=== PATIENT | male | born 1955 | race African-American/Black ===

== ENCOUNTER 2021-05-25 15:43 | Inpatient (IN) | payer OTHER, SELFPAY ==
--- NOTE | ~2021-05-25 | US_ITS ---
EXAMINATION: US VENOUS ULTRASOUND WITH DOPPLER LOWER EXTREMITY, BILATERAL CLINICAL INFORMATION: Leg pain COMPARISON: None TECHNIQUE: Ultrasound of the deep veins is performed from the hip to the calf with compression sonography and color and pulse Doppler assessment. Spectral analysis with color-flow imaging is performed. FINDINGS: RIGHT: There is occlusive thrombus throughout the right lower extremity extending from the common femoral vein through the tibioperoneal trunk. The veins appear expanded/larger in size, filled with thrombus. There is no significant popliteal fossa cyst. LEFT: There is normal venous compression and respiratory variation and augmented flow. The visualized common femoral vein, superficial femoral vein, profunda femoral vein, popliteal vein, and the trifurcation region shows no evidence of deep venous thrombosis. There is no significant popliteal fossa cyst. If the patient's symptoms persist, followup ultrasound in 5 days 7 days might be of value to exclude proximal propagation from a non-visualized calf vein. US/US venous duplex LE BI IMPRESSION: Extensive DVT throughout the right lower extremity from the common femoral vein to the tibioperoneal trunk. No DVT demonstrated in the left lower extremity. Urgent findings were discussed with SHERWIN Meke at 8:39pm.
--- NOTE | ~2021-05-25 | US_ITS ---
EXAMINATION: US ABDOMEN LIMITED CLINICAL INFORMATION: Right upper quadrant pain. Evaluate for cholecystitis.. COMPARISON: None TECHNIQUE: Real-time imaging of the right upper quadrant abdominal viscera. FINDINGS: PANCREAS: Obscured by interposed bowel gas. LIVER: Normal. The liver is normal in size. The liver contour is normal. Parenchymal echogenicity is normal. No focal hepatic lesion. There is no intrahepatic biliary duct dilatation seen. GALLBLADDER: Normal. The gallbladder is physiologically distended without evidence of stones, sludge, polyps, wall thickening or pericholecystic fluid. COMMON BILE DUCT: Normal in caliber measuring 0.5 cm in diameter. RIGHT KIDNEY: Normal. No hydronephrosis. No renal calculi. Multiple simple cysts are present, largest measuring 3.4 cm within the lower pole. These are benign and require no further workup or follow-up. The kidney measures 11.7 cm in maximum dimension. FREE FLUID: None. US/US abdomen limited IMPRESSION: No cholelithiasis or evidence of cholecystitis.
--- NOTE | ~2021-05-25 | XR_ITS ---
EXAMINATION: XR CHEST CLINICAL INFORMATION: Shortness of breath COMPARISON: None TECHNIQUE: Frontal view of the chest was obtained. FINDINGS: There is a rounded opacity projecting over the right lower lung. Left lung clear. Normal heart size and pulmonary vascularity. No acute or suspicious osseous abnormalities. XR/XR chest 1V IMPRESSION: Nonspecific rounded opacity projecting over the right lower lung. Recommend departmental radiographs or CT chest for further evaluation.
--- NOTE | ~2021-05-25 | CT_ITS ---
EXAMINATION: CT ANGIOGRAM OF THE CHEST WITH AND WITHOUT CONTRAST (CT PULMONARY ANGIOGRAM FOR PE) CLINICAL INFORMATION: Reason for Exam Nonspecific RLL opacity on CXR. R/o PE COMPARISON: Chest radiograph earlier today TECHNIQUE: Prior to contrast administration, noncontrast localization images were obtained. Subsequently, multidetector volumetric imaging was performed from the thoracic inlet to below the diaphragms following the administration of 70 mL Omnipaque 350 intravenous contrast. No contrast reaction reported Sagittal, coronal, and MIP oblique sagittal reformatted images were obtained on the CT workstation, uploaded to PACS, and reviewed. This CT examination was performed using dose optimization techniques as appropriate, variously including the following: *Automated exposure control *Adjustment of mA and/or kV according to patient size (this includes techniques or standardized protocols for targeted exams where dose is matched to indication/reason for exam; i.e. extremities or head) *Use of iterative reconstruction technique Total exam dose-length product 313 mGy-cm FINDINGS: QUALITY OF STUDY/CONTRAST BOLUS: Satisfactory. PULMONARY ARTERIES: There is a large pulmonary embolus in the distal right main pulmonary artery extending into the right lower lobe right middle lobe and right upper lobe branches. No definite left-sided emboli are seen. THORACIC AORTA: The ascending aorta is dilated at 4 cm. No aortic dissection is seen. 4 vessel branching pattern of the aortic arch is present with separate origin to the left vertebral artery. LUNG: Right lower lobe opacity is present is present with associated small pleural effusion. Differential diagnosis would include pneumonia versus evolving pulmonary infarction. Thickened bronchi extend towards the area of infiltrate. No lung masses are seen. PLEURA: A small right pleural effusion is present. MEDIASTINUM: Normal heart size. No pericardial effusion. No hilar or mediastinal lymphadenopathy. No evidence of septal bowing or right heart strain. CHEST WALL/AXILLA: No axillary or internal mammary lymphadenopathy. OSSEOUS STRUCTURES: No acute or suspicious osseous abnormality. UPPER ABDOMEN: Unremarkable. No reflux of contrast into the hepatic veins to suggest elevated right heart pressures. CT/CT angio chest PE protocol IMPRESSION: Large right-sided pulmonary emboli with associated small right effusion and well-defined area of patchy infiltrate with microcystic areas. A fracture would include pneumonia versus pulmonary infarct. No evidence of right heart strain. VTE: positive This critical result was discussed with Syeda dietz at 7:20 PM on the evening of the exam and it was ascertained that the content and urgency of the report was understood at the time of direct communication.
[2021-05-25 15:51] VITALS: BP 105/67; PULSE 91; RESP 16; TEMP 35.9; O2SAT 98; BMI 30.5
--- NOTE | 2021-05-25 16:57 | ED.GENADULT ---
HPI - General Adult General Chief complaint: Back Pain/Injury Stated complaint: side pain Time Seen by Provider: 05/25/21 16:31 Source: patient Mode of arrival: ambulatory History of Present Illness HPI narrative: 65-year-old male with a past medical history of hypertension presenting to the ED complaining of RUQ abdominal pain radiating to epigastrium x 2-3 weeks. Reports pain inhibits him from taking a deep breath secondary to sharp pain. Recently traveled from [place] 3 weeks ago. Admits 2 daughters with history of DVT/PE, no personal history of DVT/PE. Denies fever, chills, nausea/vomiting, diarrhea, dysuria/hematuria, pain with eating Related Data Home Medications Medication Instructions Recorded Confirmed diltiazem HCl 240 mg 1 cap PO DAILY 05/25/21 05/25/21 capsule,extended release 24 hr losartan 100 1 tab PO DAILY 05/25/21 05/25/21 mg-hydrochlorothiazide 25 mg tablet potassium chloride 10 mEq 1 tab PO DAILY 05/25/21 05/25/21 tablet,extended release Allergies Allergy/AdvReac Type Severity Reaction Status Date / Time No Known Allergies Allergy Verified 05/25/21 15:56 Review of Systems Review of Systems: Constitutional: No Fever, No Chills, No Fatigue, No Malaise ENT/Mouth: No Ear Pain, No Nasal Congestion, No sore throat, No Rhinorrhea Eyes: No Eye Pain, No Discharge Cardiovascular: No Chest Pain, + SOB from pain, No Palpitations Respiratory: No Cough, No Dyspnea Gastrointestinal: No Nausea, No Vomiting, No Diarrhea, No Constipation, + Abdominal pain Genitourinary: No Dysuria, No Hematuria, No Urinary Incontinence, No Flank Pain Musculoskeletal: No joint pain, No Myalgias, No Joint Swelling Skin: No Skin Lesions, No rash Neuro: No Weakness, No Numbness, No Paresthesias Yes all other systems are reviewed and are negative [facility] Past Medical History Attestation statement: The following information was validated with the patient. Medical History (Updated 05/25/21 @ 21:06 by SHERWIN Harris) Hypertension Social History Social History Alcohol intake: never Smoked in Last 30 Days: No Use of substances other than those prescribed or required for medical reasons: No Advance Directives: No Advance Directives Information Provided: No Physical Exam Vital Signs: Vital Signs: Last Vital Signs Temp 96.7 F L 05/25/21 15:51 Pulse 84 05/25/21 18:56 Resp 18 05/25/21 18:56 BP 144/88 H 05/25/21 18:56 Pulse Ox 97 05/25/21 18:56 Body Mass Index 30.5 Const: General: cooperative and healthy appearing Orientation/consciousness: patient oriented x3 Limitations: no limitations HENMT: Head: Yes normal to inspection Ears: hearing grossly normal bilaterally General nose exam: Normal external nose present Face and sinus: Yes normal facial exam Eyes: General: appearance normal, both eyes and all related structures EOM: EOMs intact bilaterally Neck: Neck: Yes normal visual inspection Resp: Effort & Inspection: normal respiratory effort Auscultation: clear to auscultation bilaterally, no rales, no rhonchi and no wheezes Cardio: Rate: regular rate Heart sounds: S1 normal heart sound present and S2 normal heart sound present GI: Inspection: Yes normal to inspection Palpation (GI): Soft to palpation, Tenderness to palpation present (GI) in the RUQ and not rigid : General: Yes no CVA tenderness Back/Spine/Pelvis: Back: no CVA tenderness Skin: Rashes: no rashes Wounds: no wounds Neuro: General: patient oriented x3 Gait exam (Neuro): Normal gait present Extrem: General: Yes normal to inspection Course Course Course Narrative: -leukocytosis of 14.7 > low concern for severe sepsis, platelets elevated US abdomen limited IMPRESSION: No cholelithiasis or evidence of cholecystitis. -182--XR chest 1V IMPRESSION: Nonspecific rounded opacity projecting over the right lower lung. Recommend departmental radiographs or CT chest for further evaluation. >> ALT elevated > will obtain CTA to rule out PE/pneumonia. Empiric IV ceftriaxone ordered. Will obtain lactic/blood cultures, coags and BNP -[id number]--received call from [facility] patient does have PE in the right pulmonary artery as well as an infiltrate in the RLL with pleural effusion, could be pulmonary infarct >> will obtain bilateral venous duplex ultrasounds, Doxycycline added, will initiate Deborah, hospitalist paged -[phone]--patient admitted to hospitalist service -2100--US venous duplex LE BI IMPRESSION: Extensive DVT throughout the right lower extremity from the common femoral vein to the tibioperoneal trunk. No DVT demonstrated in the left lower extremity > consult vascular surgery, Dr. Martínez, recommended heparin drip, and patient is good candidate for thrombolysis, likely Medical Decision Making MDM Narrative Medical decision making narrative: 65-year-old male with a past medical history of hypertension presenting to the ED complaining of RUQ abdominal pain radiating to epigastrium x 2-3 weeks. On exam VSS, NAD/nontoxic, abdomen soft with RUQ TTP, no CVAT. Lungs CTA. Concern for cholecystitis/cholelithiasis vs pancreatitis. Lower concern for PE with significant abdominal pain on exam. Symptoms atypical for ACS. Low concern for appendicitis/diverticulitis Plan: Labs, UA, abdomen ultrasound, reassess Lab Data Result diagrams: 05/25/21 17:06 05/25/21 17:06 Labs: Lab Results 05/25/21 05/25/21 05/25/21 Range/Units 17:06 17:06 17:06 WBC 14.7 H (4.8-10.8) X10*3/uL RBC 4.54 L (4.60-5.80) X10*6/uL Hgb 13.4 L (14.0-18.0) g/dl Hct 40.7 L (42-52) % MCV 89.6 (80-98) fL MCH 29.5 (27.0-33.0) pg MCHC 32.9 (31.0-36.0) g/dl RDW 14.7 (11.0-16.0) % Plt Count 787 H (160-400) X10*3/uL MPV 8.6 L (9.4-12.4) fL Immature Gran % (Auto) 1.5 H (0.0-0.4) % Neut % (Auto) 77.6 H (45-73) % Lymph % (Auto) 11.7 L (20-40) % [place] % (Auto) 8.4 (2-11) % Eos % (Auto) 0.4 (0-4) % Baso % (Auto) 0.4 (0-2) % Lymph # (Auto) 1.7 (1.2-4.9) X10*3/uL [place] # (Auto) 1.2 (0.1-1.2) X10*3/uL Eos # (Auto) 0.1 (0.0-0.4) X10*3/uL Baso # (Auto) 0.1 (0.0-0.2) X10*3/uL Abs Immat Gran (auto) 0.22 H (0.00-0.03) X10*3/uL Absolute Neuts (auto) 11.4 H (2.0-8.3) X10*3/uL Absolute Nucleated RBC 0.000 (0.0-0.012) X10*3/uL Nucleated RBC % (auto) 0.0 (0.0-0.2) /100WBC Sodium 137 (135-145) mmol/L Potassium 4.4 (3.3-5.1) mmol/L Chloride 99 (96-108) mmol/L Carbon Dioxide 28 (22-29) mmol/L Anion Gap 14 (12-20) BUN 17 H (9-16) mg/dL Creatinine 1.06 (0.5-1.4) mg/dL Estim Creat Clear Calc 74.7 Estimated GFR > 60 Random Glucose 91 (60-115) mg/dL Lactic Acid (0.5-2.0) mmol/L Calcium 9.7 (8.4-10.2) mg/dL Magnesium 2.8 H (1.6-2.6) mg/dL Total Bilirubin 0.9 (0.0-1.0) mg/dL Direct Bilirubin 0.4 (0.0-0.5) mg/dL AST 37 (5-37) U/L ALT 94 H (0-40) U/L Alkaline Phosphatase 181 H (39-117) U/L Troponin I High Sens (<3.5-35.0) ng/L B-Natriuretic Peptide (<100) pg/mL Total Protein 8.0 (6.5-8.0) g/dL Albumin 3.7 (3.5-5.0) g/dL Lipase 32 (8-78) U/L 05/25/21 05/25/21 Range/Units 18:50 18:51 WBC (4.8-10.8) X10*3/uL RBC (4.60-5.80) X10*6/uL Hgb (14.0-18.0) g/dl Hct (42-52) % MCV (80-98) fL MCH (27.0-33.0) pg MCHC (31.0-36.0) g/dl RDW (11.0-16.0) % Plt Count (160-400) X10*3/uL MPV (9.4-12.4) fL Immature Gran % (Auto) (0.0-0.4) % Neut % (Auto) (45-73) % Lymph % (Auto) (20-40) % [place] % (Auto) (2-11) % Eos % (Auto) (0-4) % Baso % (Auto) (0-2) % Lymph # (Auto) (1.2-4.9) X10*3/uL [place] # (Auto) (0.1-1.2) X10*3/uL Eos # (Auto) (0.0-0.4) X10*3/uL Baso # (Auto) (0.0-0.2) X10*3/uL Abs Immat Gran (auto) (0.00-0.03) X10*3/uL Absolute Neuts (auto) (2.0-8.3) X10*3/uL Absolute Nucleated RBC (0.0-0.012) X10*3/uL Nucleated RBC % (auto) (0.0-0.2) /100WBC Sodium (135-145) mmol/L Potassium (3.3-5.1) mmol/L Chloride (96-108) mmol/L Carbon Dioxide (22-29) mmol/L Anion Gap (12-20) BUN (9-16) mg/dL Creatinine (0.5-1.4) mg/dL Estim Creat Clear Calc Estimated GFR Random Glucose (60-115) mg/dL Lactic Acid 1.4 (0.5-2.0) mmol/L Calcium (8.4-10.2) mg/dL Magnesium (1.6-2.6) mg/dL Total Bilirubin (0.0-1.0) mg/dL Direct Bilirubin (0.0-0.5) mg/dL AST (5-37) U/L ALT (0-40) U/L Alkaline Phosphatase (39-117) U/L Troponin I High Sens 6.6 (<3.5-35.0) ng/L B-Natriuretic Peptide 15 (<100) pg/mL Total Protein (6.5-8.0) g/dL Albumin (3.5-5.0) g/dL Lipase (8-78) U/L Discharge Plan Discharge Clinical Impression: Pulmonary embolism, Pneumonia, DVT (deep venous thrombosis) Patient Disposition: Admitted As Inpatient
[2021-05-25 17:11] LABS: MANUAL DIFF FLAG NO
[2021-05-25] MEDS: 0.9 % Sodium Chloride 1,000 ML 999 ML IVCONT (17:12)
[2021-05-25] MEDS: Ketorolac Tromethamine 15 MG/ML VIAL IVPUSH (17:12)
[2021-05-25] MEDS: ondansetron HCL 4 MG/2 ML VIAL IVPUSH (17:12)
[2021-05-25 17:13] LABS: Basophils Absolute Auto 0.1 X10*3/uL (0.0-0.2); Basophils Percent Auto 0.4 % (0-2); Eosinophils Absolute Auto 0.1 X10*3/uL (0.0-0.4); Eosinophils Percent Auto 0.4 % (0-4); Hematocrit 40.7 % (42-52); Hemoglobin 13.4 g/dl (14.0-18.0); Imm Gran Abs Auto 0.22 X10*3/uL (0.00-0.03); Imm Gran Pct Auto 1.5 % (0.0-0.4); Lymphocytes Absolute Auto 1.7 X10*3/uL (1.2-4.9); Lymphocytes Percent Auto 11.7 % (20-40); Mean Corpuscular HGB Conc 32.9 g/dl (31.0-36.0); Mean Corpuscular Hemoglobin 29.5 pg (27.0-33.0); Mean Corpuscular Volume 89.6 fL (80-98); Mean Platelet Volume 8.6 fL (9.4-12.4); Monocytes Absolute Auto 1.2 X10*3/uL (0.1-1.2); Monocytes Percent Auto 8.4 % (2-11); Neutrophils Absolute Auto 11.4 X10*3/uL (2.0-8.3); Neutrophils Percent Auto 77.6 % (45-73); Platelet Count 787 X10*3/uL (160-400); Red Blood Count 4.54 X10*6/uL (4.60-5.80); Red Cell Distribution Width 14.7 % (11.0-16.0); White Blood Count 14.7 X10*3/uL (4.8-10.8)
[2021-05-25 17:35] LABS: Lipase 32 U/L (8-78)
[2021-05-25 17:40] LABS: Alanine Aminotransferase 94 U/L (0-40); Albumin Level 3.7 g/dL (3.5-5.0); Alkaline Phosphatase 181 U/L (39-117); Anion Gap 14 (12-20); Aspartate Amino Transferase 37 U/L (5-37); Bilirubin Direct 0.4 mg/dL (0.0-0.5); Bilirubin Total 0.9 mg/dL (0.0-1.0); Blood Urea Nitrogen 17 mg/dL (9-16); Calcium 9.7 mg/dL (8.4-10.2); Carbon Dioxide 28 mmol/L (22-29); Chloride 99 mmol/L (96-108); Creatinine Clr Calc Pharmacy 74.7; Estimated Glomerular Filt Rate > 60; Glucose Random 91 mg/dL (60-115); Magnesium 2.8 mg/dL (1.6-2.6); Potassium 4.4 mmol/L (3.3-5.1); Sodium 137 mmol/L (135-145)
[2021-05-25] MEDS: iohexoL 350 MG/ML 100 ML INFUS..BTL IV (18:35)
[2021-05-25] MEDS: cefTRIAXone sodium 1 GM in 0.9 % Sodium Chloride 50 ML IV (18:53)
[2021-05-25 18:56] VITALS: BP 144/88; PULSE 84; RESP 18; O2SAT 97
[2021-05-25] MEDS: fentaNYL citrate/PF 100 MCG/2 ML VIAL 50 MCG IVPUSH (19:02)
--- NOTE | 2021-05-25 19:15 | PC.NURSE ---
awaiting blue to from lab
[2021-05-25 19:17] LABS: Lactic Acid 1.4 mmol/L (0.5-2.0)
[2021-05-25 19:27] LABS: B Type Natriuretic Peptide 15 pg/mL (<100)
--- NOTE | 2021-05-25 19:45 | P.HPHOSP_ITS ---
History of Present Illness Date of Service: 05/25/21 Chief Complaint: Abdominal pain 65-year-old male with a past medical history of hypertension presented to the hospital with a chief complaint of abdominal pain. Patient reports that his the past 2-3 weeks he has been having abdominal pain located in the epigastrium and right upper quadrant associated with nausea and vomiting initially; worsens with deep inspiration. Also causing shortness of breath. Denies any fever chills cough or sputum production. Denies any urinary symptoms. Patient mentions that he had traveled from [facility] about 2-3 weeks ago next [place] [employer] his daughters had diagnosed with pulmonary embolism. Denies any headaches palpitations lightheadedness or dizziness. Denies any trauma. Patient complains of right lower extremity pain the past 3 weeks. Denies any numbness or tingling. Spoke to the patient's daughter at bedside-who reported that she had pulmonary embolism in the past and attributes to her use of oral contraceptive pills. Review of all other systems is negative except mentioned above ER course: Per ER team patient's EKG was nonischemic; abdominal exam was benign; abdominal ultrasound showed no acute findings; CT chest showed evidence of pulmonary embolism in the right main pulmonary artery distally extending into the right middle lobe; also noticed evidence of pneumonia. Given antibiotics and Lovenox. Admitted for further management. [facility] Medical History (Updated 05/25/21 @ 21:06 by SHERWIN Harris) Hypertension Social History Alcohol intake: never Smoked in Last 30 Days: No Use of substances other than those prescribed or required for medical reasons: No Advance Directives: No Advance Directives Information Provided: No Meds Allergies Allergy/AdvReac Type Severity Reaction Status Date / Time No Known Allergies Allergy Verified 05/25/21 15:56 Active Medications: Current Medications Generic Name Dose Route Start Last Admin Trade Name Freq PRN Reason Stop Dose Admin Acetaminophen 650 mg 05/25/21 19:37 Acetaminophen 325 Mg Tablet PO Q6H PRN Pain, Mild (Pain Scale 1-3) Doxycycline Hyclate 100 mg 05/25/21 20:00 Doxycycline Hyclate 100 Mg Tablet PO Q12H [facility] Enoxaparin Sodium 90 mg 05/25/21 19:45 Enoxaparin Sodium 120 Mg/0.8 Ml Syringe 1 mg/kg (90 mg) SUBCUT Q12H [facility] Doxycycline Hyclate 100 mg/ 250 mls @ 166.67 mls/hr 05/25/21 19:21 Sodium Chloride IV 05/25/21 20:50 ONCE ONE Ceftriaxone Sodium 1 gm/ 50 mls @ 100 mls/hr 05/26/21 18:00 Sodium Chloride IV Q24H [facility] Dextrose/Sodium Chloride 1,000 mls @ 100 mls/hr 05/25/21 19:45 D51/2ns IVCONT .Q10H [facility] Magnesium Hydroxide 30 ml 05/25/21 19:37 Milk Of Magnesia 30 Ml Oral.Susp PO DAILY PRN Constipation Melatonin 6 mg 05/25/21 19:37 Melatonin 3 Mg Tablet PO BEDTIME PRN Insomnia Morphine Sulfate 1 mg 05/25/21 19:37 Morphine Sulfate 4 Mg/Ml Cartridge IVPUSH Q4H PRN Pain, Severe (Pain Scale 7-10) Protocol Pharmacy Consult 1 each 05/25/21 19:35 Consult Rx Perform Med Rec MISCELLANE ONCE PRN Consult order Senna 17.2 mg 05/25/21 19:37 Sennosides 8.6 Mg Tablet PO BEDTIME PRN Constipation Sodium Chloride 3 ml 05/26/21 00:00 0.9 % Sodium Chloride Flush 3 Ml Syringe IVFLUSH QSHIFT [facility] Home Medications Medication Instructions Recorded Confirmed Last Taken Type diltiazem HCl 240 mg 1 cap PO DAILY 05/25/21 05/25/21 05/25/21 History capsule,extended release 24 hr losartan 100 1 tab PO DAILY 05/25/21 05/25/21 05/25/21 History mg-hydrochlorothiazide 25 mg tablet potassium chloride 10 mEq 1 tab PO DAILY 05/25/21 05/25/21 05/25/21 History tablet,extended release Physical Exam Vital Signs and Narrative: Vital Signs: Last Vital Signs Temp 96.7 F L 05/25/21 15:51 Pulse 84 05/25/21 18:56 Resp 18 05/25/21 18:56 BP 144/88 H 05/25/21 18:56 Pulse Ox 97 05/25/21 18:56 Body Mass Index 30.5 Gen: Appears be in no acute distress HEENT: NCAT, Moist mucosa. Pulmonary: Vesicular breath sounds, fair air entry CVS: Normal S1-S2 Abdomen: BS+, Soft, Nontender Extremities: Warm well perfused Neuro: Alert and awake. Results Labs CBC and Chem 7: 05/25/21 17:06 05/25/21 17:06 Labs: Laboratory Results - last 24 hr 05/25/21 05/25/21 05/25/21 17:06 17:06 17:06 MCV 89.6 MCH 29.5 MCHC 32.9 RDW 14.7 Plt Count 787 H MPV 8.6 L Immature Gran % (Auto) 1.5 H Neut % (Auto) 77.6 H Lymph % (Auto) 11.7 L [place] % (Auto) 8.4 Eos % (Auto) 0.4 Baso % (Auto) 0.4 Lymph # (Auto) 1.7 [place] # (Auto) 1.2 Eos # (Auto) 0.1 Baso # (Auto) 0.1 Abs Immat Gran (auto) 0.22 H Absolute Neuts (auto) 11.4 H Absolute Nucleated RBC 0.000 Nucleated RBC % (auto) 0.0 Anion Gap 14 Estim Creat Clear Calc 74.7 Estimated GFR > 60 Random Glucose 91 Lactic Acid Calcium 9.7 Magnesium 2.8 H Total Bilirubin 0.9 Direct Bilirubin 0.4 AST 37 ALT 94 H Alkaline Phosphatase 181 H B-Natriuretic Peptide Total Protein 8.0 Albumin 3.7 Lipase 32 05/25/21 05/25/21 18:50 18:51 MCV MCH MCHC RDW Plt Count MPV Immature Gran % (Auto) Neut % (Auto) Lymph % (Auto) [place] % (Auto) Eos % (Auto) Baso % (Auto) Lymph # (Auto) [place] # (Auto) Eos # (Auto) Baso # (Auto) Abs Immat Gran (auto) Absolute Neuts (auto) Absolute Nucleated RBC Nucleated RBC % (auto) Anion Gap Estim Creat Clear Calc Estimated GFR Random Glucose Lactic Acid 1.4 Calcium Magnesium Total Bilirubin Direct Bilirubin AST ALT Alkaline Phosphatase B-Natriuretic Peptide 15 Total Protein Albumin Lipase Imaging Radiologist's Impressions: Impressions Abdomen Ultrasound 05/25/21 16:48 IMPRESSION: No cholelithiasis or evidence of cholecystitis. Chest X-Ray 05/25/21 16:49 IMPRESSION: Nonspecific rounded opacity projecting over the right lower lung. Recommend departmental radiographs or CT chest for further evaluation. Chest CTA 05/25/21 18:22 IMPRESSION: Large right-sided pulmonary emboli with associated small right effusion and well-defined area of patchy infiltrate with microcystic areas. A fracture would include pneumonia versus pulmonary infarct. No evidence of right heart strain. VTE: positive This critical result was discussed with Syeda dietz at 7:20 PM on the evening of the exam and it was ascertained that the content and urgency of the report was understood at the time of direct communication. Assessment and Plan (1) Pulmonary embolism: Qualifiers: Acute cor pulmonale presence: unspecified Chronicity: acute Pulmonary embolism type: unspecified Qualified Code(s): I26.99 - Other pulmonary embolism without acute cor pulmonale Status: Acute (2) Pneumonia: Qualifiers: Laterality: right Lung location: lower lobe of lung Pneumonia type: due to unspecified organism Qualified Code(s): J18.9 - Pneumonia, unspecified organism Status: Acute 65-year-old male with a past medical history of hypertension presented to the hospital with a chief complaint of abdominal pain. Noted to have pulmonary embolism/pneumonia. Admitted for further management. Pulmonary embolism: No evidence of right heart strain on the CT scan. Blood pr essure is stable. ProBNP negative. Will continue Lovenox at therapeutic dose. Echocardiogram Will consult Hematology-Oncology for further recommendations given other members in the family having pulmonary embolism. Right leg pain: Venous duplex showed extensive DVT throughout the right lower extremity from common femoral vein to the tibioperoneal trunk. ER team discussed with Dr. Tanya avalos from vascular surgery-> recommended admission to the [facility], heparin drip, will be evaluated in the morning for possible intervention if needed. Right lower lobe pneumonia/right-sided pleural effusion: Likely contributing to the patient's pleuritic pain. Continue ceftriaxone and doxycycline. Hypertension: Continue home losartan. Code status: Full code Quality Stroke Does the patient have a stroke diagnosis?: No VTE Prior VTE?: Yes Approximate Date of Prior VTE: 05/25/21 VTE Risk Level:: Medical - moderate - high VTE Device Contraindication: Treatment Not Indicated VTE Drug Contraindication: N/A - Med Ordered
[2021-05-25] MEDS: Doxycycline Hyclate 100 MG in 0.9 % Sodium Chloride 250 ML 166.67 MG IV (19:50)
[2021-05-25] MEDS: Enoxaparin Sodium 100 MG/ML SYRINGE 90 MG SUBCUT (19:51)
--- NOTE | 2021-05-25 19:53 | PHA.MEDREC ---
Pharmacy Consult ? Medication Reconciliation Pharmacy has completed the medication reconciliation. SPOKE WITH PATIENT IN ED.
[2021-05-25 20:11] LABS: COVID-19 Test Negative (Negative)
[2021-05-25 20:16] LABS: Troponin-I High Sensitivity 6.6 ng/L (<3.5-35.0)
[2021-05-25 21:05] LABS: INTERNATIONAL NORM RATIO 1.2 (0.9-1.1); Prothrombin Time 13.5 SEC (9.9-13.0)
[2021-05-25 21:08] LABS: Partial Thromboplastin Time 38.1 SEC (24.1-38.0)
--- NOTE | 2021-05-25 21:10 | PC.NURSE ---
[place] [facility] [place] NISHA MARTINEZ NOT AVAIL[place].
[2021-05-25] MEDS: Dextrose 5 % and 0.45 % NaCl 1,000 ML 100 ML IVCONT (22:03)
[2021-05-25 22:35] VITALS: BP 123/73; PULSE 81; RESP 18; TEMP 37; O2SAT 98
[2021-05-25] MEDS: Melatonin 3 MG TABLET 6 MG PO (23:16)
[2021-05-26] VITALS (8 sets, daily range): BP systolic 109–166; BP diastolic 68–82; PULSE 80–98; RESP 18; TEMP 36.8–38.4; O2SAT 96–98; BMI 28.9
[2021-05-26 03:40] LABS: Hematocrit 35.8 % (42-52); Mean Corpuscular HGB Conc 33.5 g/dl (31.0-36.0); Mean Corpuscular Hemoglobin 29.8 pg (27.0-33.0); Mean Corpuscular Volume 88.8 fL (80-98); Mean Platelet Volume 8.6 fL (9.4-12.4); Platelet Count 675 X10*3/uL (160-400); Red Blood Count 4.03 X10*6/uL (4.60-5.80); Red Cell Distribution Width 14.6 % (11.0-16.0); White Blood Count 12.1 X10*3/uL (4.8-10.8)
[2021-05-26] MEDS: Morphine Sulfate 4 MG/ML CARTRIDGE 1 MG IVPUSH ×2 (03:43→18:02)
[2021-05-26 03:45] LABS: INTERNATIONAL NORM RATIO 1.1 (0.9-1.1)
[2021-05-26 03:48] LABS: PTT Heparin Drip 39.3 SEC (53-77.9)
[2021-05-26 04:13] LABS: Anion Gap 18 (12-20); Blood Urea Nitrogen 16 mg/dL (9-16); Carbon Dioxide 27 mmol/L (22-29); Chloride 97 mmol/L (96-108); Creatinine Clr Calc Pharmacy 74.2; Estimated Glomerular Filt Rate > 60; Glucose Random 114 mg/dL (60-115); Sodium 138 mmol/L (135-145)
[2021-05-26] MEDS: Dextrose 5 % and 0.45 % NaCl 1,000 ML 100 ML IVCONT (06:30)
--- NOTE | 2021-05-26 07:30 | CA_ITS ---
Transthoracic Echocardiogram Patient (Last, First, Middle): Dorian Masterson, Gender: Male Date of : 1955 Age: 65 Procedure Date: 05/26/2021 Procedure Type: Transthoracic Echocardiogram Location: [facility] Height: 170.18 cm Weight: 83.46 kg BSA: 1.95 m2 Heart Rate: bpm BP: 122 / 77 mmHg Loftsman: Referring MD: Sam Trent MD Symptoms: PE Study Quality: Fair ECG Rhythm: Sinus Conclusions: - Normal left ventricular size and systolic function. - Diastolic function is normal for age. - Normal right ventricular cavity size and systolic function. - There is moderate dilatation of the ascending aorta. Findings Left Ventricle Normal left ventricular size and systolic function. There is mildly increased left ventricular wall thickness. The visually estimated ejection fraction is between 60-65%. There is no evidence of regional wall motion abnormalities. Diastolic function is normal for age. Right Ventricle Normal right ventricular cavity size and systolic function. Atria Both atria are normal in size. Aortic Valve There is a normal trileaflet aortic valve. There is no aortic valve stenosis. There is trace (trivial) aortic valve regurgitation. Mitral Valve The mitral valve appears normal. There is trace mitral valve regurgitation. There is no mitral valve stenosis. Pulmonic Valve The pulmonic valve is likely normal. Tricuspid Valve Normal tricuspid valve structure and function. There is mild tricuspid valve regurgitation. Tricuspid regurgitation envelope is inadequate for calculation of right ventricular systolic pressure. Normal right atrial pressure. Great Vessels The pulmonary artery was not well visualized. There is moderate dilatation of the ascending aorta. Venous The inferior vena cava is normal in size and collapses greater than 50% with inspiration. Pericardium/Pleural There is no evidence of pericardial effusion. Prior Study Comparison No prior study available for comparison. Measurements 2D Linear Measurements IVSd: 1.23 0.6-0.9/0.6-1.0 cm LVIDd: 4.91 3.9-5.3/4.2-5.9 cm LVIDd Index: 2.52 2.4-3.2/2.2-3.1 cm/m2 LVIDs: 2.74 2.0-3.6 cm LVPWd: 1.21 0.7-1.1 cm Ao Root: 3.70 2.1-3.5 cm LA Diam: 3.30 2.7-3.8/3.0-4.0 cm LAIDs Index: 1.69 1.5-2.3 cm/m2 LV Mass: 289.84 67-162/88-224 g LV Mass Index: 148.64 43-95/49-115 g/m2 LVOT Diam: 2.20 3.0+(-)1.3 cm Mitral Valve MV Pk E: 0.78 MV PK A: 1.10 MV Decel Time: 140.00 E/A: 0.70 E'Lateral: 12.80 E'Medial: 6.85 E/E' Med: 11.40 E/E' Lat: 6.10 PHT: 41.00 MVA PHT: 5.37 Decel Archuleta: 5.59 Aortic Valve AoV Pk Jose Armando: 1.79 AoV Mn Jose Armando: 1.16 AoV VTI: 0.29 AoV Pk Grad: 13.00 Aov Mn Grad: 6.00 LUIS Cont.VTI: 3.18 LVOT LVOT Pk Jose Armando: 1.17 LVOT Mn Jose Armando: 0.73 LVOT VTI: 0.25 LVOT Pk Grad: 5.00 LVOT Mn Grad: 3.00 LVOT Diam: 2.20 LVOT Area: 3.80 Diastolic Function MV Pk E: 0.78 MV Pk A: 1.10 E/A: 0.70 E'Medial: 6.85 E/E' Med: 11.40 E' Laterial: 12.80 E/E' Lat: 6.10 Tricuspid Valve TR Pk Jose Armando: 2.13 TR Pk Grad: 18.00 Great Vessels Aorta Ao Root-2D: 3.70 2.0-3.7 cm Ao Asc: 4.40 2.1-3.4 cm Pulmonary Valve PV Pk Jose Armando: 0.90 Peak PV Grad: 3.00 Updated in Other Vendor System with Status of Final Faheem Toney MD electronically signed on 05/26/2021 11:33:10 AM with status of Final
[2021-05-26] MEDS: Doxycycline Hyclate 100 MG in 0.9 % Sodium Chloride 250 ML 166.67 MG IV ×2 (08:49→20:16)
[2021-05-26] MEDS: 0.9 % Sodium Chloride Flush 3 ML SYRINGE IVFLUSH ×2 (08:51→18:04)
[2021-05-26 09:06] LABS: Procalcitonin 0.11 ng/mL
--- NOTE | 2021-05-26 09:46 | MHC.CM.PN ---
CM met with Patient at bedside. Patient lives in a house with a Friend and he uses a cane to assist with mobility. Patient's goal is to return home/no services and CM has initiated and will follow for dc planning. PCP is Dr. Shabbir Crane.
[2021-05-26 09:49] LABS: C Reactive Protein 24.68 mg/dL (< or = 0.50)
[2021-05-26] MEDS: Heparin Sodium,Porcine/1/2NS 25,000 UNIT/250 ML IV.SOLN 12.38 UNIT IVCONT (10:32)
--- NOTE | 2021-05-26 12:00 | PM.CNGS ---
History of Present Illness Consult details Consult date: 05/26/21 Reason for consult: other (DVT/PE) Narrative: Very pleasant 65-year-old gentleman presented to the hospital yesterday with acute onset right lower extremity pain and swelling. He noticed it all began after return trip from [place]. He had driven the entire length without any significant breaks her stops. He developed significant right lower extremity swelling and discomfort. He was subsequently seen in the emergency room and worked up. He was noted to have an extensive right lower extremity DVT with pulmonary embolism. He now presents for vascular evaluation. Of note he has no history of prior DVT or trauma. He does have 2 daughters which have had prior DVTs as well. Review of Systems Constitutional: Constitutional: Reports as per HPI ENT: Reports system reviewed and no additional complaints, except as documented Cardiovascular: Cardiovascular: Denies chest pain, Denies chest pain at rest and Denies chest pain with activity Respiratory: Respiratory: Denies chest congestion and Denies cough Gastrointestinal: Gastrointestinal: Reports no additional gastrointestinal complaints Musculoskeletal: Musculoskeletal: Denies abnormal gait Integumentary/Breasts: Skin/Breast: Reports pruritus and Denies wounds Neurologic: Reports system reviewed and no additional complaints, except as documented and Denies abnormal gait Psychiatric: Psychiatric: Denies no additional psychiatric complaints [facility] Past Medical History Medical History (Updated 05/25/21 @ 21:06 by SHERWIN Harris) Hypertension Social History Social History Household Members: Other Household Members Other:: rents a room to someone Housing: House Do you presently have visiting nurse or other home services: No Alcohol intake: never Patient Tobacco Use Status: Never used Tobacco Smoked in Last 30 Days: No Use of substances other than those prescribed or required for medical reasons: Yes 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 If so, by whom?: No Do you feel safe in your current relationship?: No Current Relationship Is there a partner from a previous relationship who is making you feel unsafe now?: No Are you made to feel afraid or neglected: No Advance Directives: No Advance Directives Information Provided: No Do you have thoughts of harming others: None Do you have a plan to hurt others: No Plan Recently lost weight without trying: No How much weight loss: Not applicable Eating poorly because of decreased appetite: No Nutrition screen score: 0 Nutrition Risks: No Nutritional Risk Poor oral hygiene: No service: Yes Current occupational status: unemployed Meds Allergies Allergy/AdvReac Type Severity Reaction Status Date / Time No Known Allergies Allergy Verified 05/25/21 15:56 Active Medications: Current Medications Generic Name Dose Route Start Last Admin Trade Name Freq PRN Reason Stop Dose Admin Acetaminophen 650 mg 05/25/21 19:37 Acetaminophen 325 Mg Tablet PO Q6H PRN Pain, Mild (Pain Scale 1-3) Heparin Sodium (Porcine) 3,500 unit 05/26/21 03:10 Heparin Sodium,Porcine 5,000 Unit/Ml Vial 40 unit/kg (3500 unit) IVPUSH PROTOCOL BOLUS PRN 40 unit/kg - Heparin Protocol Protocol Heparin Sodium (Porcine) 7,100 unit 05/26/21 03:10 Heparin Sodium,Porcine 5,000 Unit/Ml Vial 80 unit/kg (7100 unit) IVPUSH PROTOCOL BOLUS PRN 80 unit/kg - Heparin Protocol Protocol Ceftriaxone Sodium 1 gm/ 50 mls @ 100 mls/hr 05/26/21 18:00 Sodium Chloride IV Q24H MIKA Dextrose/Sodium Chloride 1,000 mls @ 100 mls/hr 05/25/21 19:45 05/26/21 08:47 D51/2ns IVCONT 0 mls/hr .Q10H MIKA Infusion Doxycycline Hyclate 100 mg/ 250 mls @ 166.67 mls/hr 05/26/21 08:00 05/26/21 10:39 Sodium Chloride IV Infused Q12H MIKA Infusion Heparin Sodium/Sodium Chloride 25,000 unit in 250 mls @ 0 mls/hr 05/26/21 03:15 05/26/21 10:32 IVCONT 14 units/kg/hr .Q0M MIKA 12.38 mls/hr Administration Protocol Per Protocol Magnesium Hydroxide 30 ml 05/25/21 19:37 Milk Of Magnesia 30 Ml Oral.Susp PO DAILY PRN Constipation Melatonin 6 mg 05/25/21 19:37 05/25/21 23:16 Melatonin 3 Mg Tablet PO 6 mg BEDTIME PRN Administration Insomnia Morphine Sulfate 1 mg 05/25/21 19:37 05/26/21 03:43 Morphine Sulfate 4 Mg/Ml Cartridge IVPUSH 1 mg Q4H PRN Administration Pain, Severe (Pain Scale 7-10) Protocol Pharmacy Consult 1 each 05/25/21 19:35 Consult Rx Perform Med Rec MISCELLANE ONCE PRN Consult order Senna 17.2 mg 05/25/21 19:37 Sennosides 8.6 Mg Tablet PO BEDTIME PRN Constipation Sodium Chloride 3 ml 05/26/21 00:00 05/26/21 08:51 0.9 % Sodium Chloride Flush 3 Ml Syringe IVFLUSH 3 ml QSHIFT [facility] Administration Home Medications Medication Instructions Recorded Confirmed Last Taken Type diltiazem HCl 240 mg 1 cap PO DAILY 05/25/21 05/25/21 05/25/21 History capsule,extended release 24 hr losartan 100 1 tab PO DAILY 05/25/21 05/25/21 05/25/21 History mg-hydrochlorothiazide 25 mg tablet potassium chloride 10 mEq 1 tab PO DAILY 05/25/21 05/25/21 05/25/21 History tablet,extended release Physical Exam Vital Signs: Vital Signs: Last Vital Signs Temp 99 F 05/26/21 10:24 Pulse 88 05/26/21 10:24 Resp 18 05/26/21 10:24 BP 131/77 05/26/21 10:24 Pulse Ox 96 05/26/21 10:24 Body Mass Index 28.9 Const: General: cooperative, healthy appearing and comfortable Orientation/consciousness: oriented to person, oriented to place and oriented to time Neck: Carotids: no bruits Chest: Chest palpation & inspection: normal inspection of the chest and normal palpation of entire chest wall Resp: Effort & Inspection: normal respiratory effort and able to speak in complete sentences Cardio: Rate: regular rate Heart sounds: S1 normal heart sound present and S2 normal heart sound present Peripheral pulses: Peripheral pulses 2+ throughout GI: Inspection: Yes normal to inspection Skin: Other: +2 edema right lower extremity General skin exam: dry skin Neuro: General: oriented to person, oriented to place and oriented to time Extrem: General: Yes edema Right lower extremity: full ROM, normal capillary refill and edema Left lower extremity: full ROM, normal capillary refill and edema Psych: Mental Status: mental status grossly normal Results Labs Result diagrams: 05/26/21 03:31 05/26/21 03:31 Labs: Abnormal lab results 05/25/21 05/25/21 05/25/21 Range/Units 17:06 17:06 20:48 WBC 14.7 H (4.8-10.8) X10*3/uL RBC 4.54 L (4.60-5.80) X10*6/uL Hgb 13.4 L (14.0-18.0) g/dl Hct 40.7 L (42-52) % Plt Count 787 H (160-400) X10*3/uL MPV 8.6 L (9.4-12.4) fL Immature Gran % (Auto) 1.5 H (0.0-0.4) % Neut % (Auto) 77.6 H (45-73) % Lymph % (Auto) 11.7 L (20-40) % Abs Immat Gran (auto) 0.22 H (0.00-0.03) X10*3/uL Absolute Neuts (auto) 11.4 H (2.0-8.3) X10*3/uL PT 13.5 H (9.9-13.0) SEC INR 1.2 H (0.9-1.1) APTT 38.1 H (24.1-38.0) SEC PTT (Heparin Protocol) (53-77.9) SEC BUN 17 H (9-16) mg/dL Magnesium 2.8 H (1.6-2.6) mg/dL ALT 94 H (0-40) U/L Alkaline Phosphatase 181 H (39-117) U/L C-Reactive Protein (< or = 0.50) mg/dL 05/26/21 05/26/21 05/26/21 Range/Units 03:31 03:31 03:31 WBC 12.1 H (4.8-10.8) X10*3/uL RBC 4.03 L (4.60-5.80) X10*6/uL Hgb 12.0 L (14.0-18.0) g/dl Hct 35.8 L (42-52) % Plt Count 675 H (160-400) X10*3/uL MPV 8.6 L (9.4-12.4) fL Immature Gran % (Auto) (0.0-0.4) % Neut % (Auto) (45-73) % Lymph % (Auto) (20-40) % Abs Immat Gran (auto) (0.00-0.03) X10*3/uL Absolute Neuts (auto) (2.0-8.3) X10*3/uL PT (9.9-13.0) SEC INR (0.9-1.1) APTT (24.1-38.0) SEC PTT (Heparin Protocol) 39.3 L (53-77.9) SEC BUN (9-16) mg/dL Magnesium (1.6-2.6) mg/dL ALT (0-40) U/L Alkaline Phosphatase (39-117) U/L C-Reactive Protein 24.68 H (< or = 0.50) mg/dL Short CBC 05/25/21 05/26/21 Range/Units 17:06 03:31 WBC 14.7 H 12.1 H (4.8-10.8) X10*3/uL Hgb 13.4 L 12.0 L (14.0-18.0) g/dl Hct 40.7 L 35.8 L (42-52) % Plt Count 787 H 675 H (160-400) X10*3/uL BMP 05/25/21 05/26/21 17:06 03:31 Sodium 137 138 Potassium 4.4 4.0 Chloride 99 97 Carbon Dioxide 28 27 BUN 17 H 16 Creatinine 1.06 1.04 Calcium 9.7 9.0 D Liver Function 05/25/21 Range/Units 17:06 Total Bilirubin 0.9 (0.0-1.0) mg/dL Direct Bilirubin 0.4 (0.0-0.5) mg/dL AST 37 (5-37) U/L ALT 94 H (0-40) U/L Alkaline Phosphatase 181 H (39-117) U/L Albumin 3.7 (3.5-5.0) g/dL All other labs normal. Imaging CT scan - chest: report reviewed and image reviewed Additional studies: Right lower extremity ultrasound was reviewed which was positive for DVT Assessment and Plan (1) DVT (deep venous thrombosis): Qualifiers: Affected thrombotic vein of extremity: unspecified vein of extremity Chronicity: unspecified DVT location: lower extremity Laterality: right Qualified Code(s): I82.401 - Acute embolism and thrombosis of unspecified deep veins of right lower extremity Status: Acute In short patient has an extensive right lower extremity DVT. He is an excellent candidate for thrombolysis due to the location and extent of his DVT. He will be scheduled for right lower extremity venous angiogram with insertion of thrombolysis catheter possible plasty possible stent possible vena cava filter placement. Patient is in agreement and would like to move forward. We will schedule him for early tomorrow morning most likely 07:00. Thank you for allowing us to assist in his care. If there are any questions or concerns please do not hesitate to contact us. Procedures Date of Service Date of Service: 05/26/21
--- NOTE | 2021-05-26 14:36 | P.PNIM_ITS ---
Subjective Subjective Date of Service: 05/26/21 Interval History: RLE swelling + R-sided pleuritic pain No fever Not hypoxic Review of Systems Review of Systems: Yes all other systems are reviewed and are negative Physical Exam Vital Signs: Vital Signs: Last Vital Signs Temp 99 F 05/26/21 10:24 Pulse 88 05/26/21 10:24 Resp 18 05/26/21 10:24 BP 131/77 05/26/21 10:24 Pulse Ox 96 05/26/21 10:24 Body Mass Index 28.9 Gen: in no acute distress HEENT: sclera anicteric, moist mucus membranes Neck: supple Lungs: clear to auscultation bilaterally Heart: regular rate and rhythm, no murmurs Abd: soft, non-tender, non-distended Ext: RLE markedly swollen Skin: warm/well-perfused Neuro: alert and oriented x3, no focal findings Psych: appropriate affect Objective Data Current Medications Generic Name Dose Route Start Last Admin Trade Name Freq PRN Reason Stop Dose Admin Acetaminophen 650 mg 05/25/21 19:37 Acetaminophen 325 Mg Tablet PO Q6H PRN Pain, Mild (Pain Scale 1-3) Heparin Sodium (Porcine) 3,500 unit 05/26/21 03:10 Heparin Sodium,Porcine 5,000 Unit/Ml Vial 40 unit/kg (3500 unit) IVPUSH PROTOCOL BOLUS PRN 40 unit/kg - Heparin Protocol Protocol Heparin Sodium (Porcine) 7,100 unit 05/26/21 03:10 Heparin Sodium,Porcine 5,000 Unit/Ml Vial 80 unit/kg (7100 unit) IVPUSH PROTOCOL BOLUS PRN 80 unit/kg - Heparin Protocol Protocol Ceftriaxone Sodium 1 gm/ 50 mls @ 100 mls/hr 05/26/21 18:00 Sodium Chloride IV Q24H MIKA Dextrose/Sodium Chloride 1,000 mls @ 100 mls/hr 05/25/21 19:45 05/26/21 08:47 D51/2ns IVCONT 0 mls/hr .Q10H MIKA Infusion Doxycycline Hyclate 100 mg/ 250 mls @ 166.67 mls/hr 05/26/21 08:00 05/26/21 10:39 Sodium Chloride IV Infused Q12H MIKA Infusion Heparin Sodium/Sodium Chloride 25,000 unit in 250 mls @ 0 mls/hr 05/26/21 03:15 05/26/21 10:32 IVCONT 14 units/kg/hr .Q0M MIKA 12.38 mls/hr Administration Protocol Per Protocol Alteplase, Recombinant 5 mg/ 500 mls @ 50 mls/hr 05/27/21 07:00 Sodium Chloride INTRAARTER 05/27/21 16:59 .Q10H MIKA 0.5 MG/HR Magnesium Hydroxide 30 ml 05/25/21 19:37 Milk Of Magnesia 30 Ml Oral.Susp PO DAILY PRN Constipation Melatonin 6 mg 05/25/21 19:37 05/25/21 23:16 Melatonin 3 Mg Tablet PO 6 mg BEDTIME PRN Administration Insomnia Morphine Sulfate 1 mg 05/25/21 19:37 05/26/21 03:43 Morphine Sulfate 4 Mg/Ml Cartridge IVPUSH 1 mg Q4H PRN Administration Pain, Severe (Pain Scale 7-10) Protocol Pharmacy Consult 1 each 05/25/21 19:35 Consult Rx Perform Med Rec MISCELLANE ONCE PRN Consult order Senna 17.2 mg 05/25/21 19:37 Sennosides 8.6 Mg Tablet PO BEDTIME PRN Constipation Sodium Chloride 3 ml 05/26/21 00:00 05/26/21 08:51 0.9 % Sodium Chloride Flush 3 Ml Syringe IVFLUSH 3 ml QSHIFT [facility] Administration Labs CBC & Chem 7: 05/26/21 03:31 05/26/21 03:31 Labs: Laboratory Results - last 24 hr 05/25/21 05/25/21 05/25/21 17:06 17:06 17:06 MCV 89.6 MCH 29.5 MCHC 32.9 RDW 14.7 Plt Count 787 H MPV 8.6 L Immature Gran % (Auto) 1.5 H Neut % (Auto) 77.6 H Lymph % (Auto) 11.7 L [place] % (Auto) 8.4 Eos % (Auto) 0.4 Baso % (Auto) 0.4 Lymph # (Auto) 1.7 [place] # (Auto) 1.2 Eos # (Auto) 0.1 Baso # (Auto) 0.1 Abs Immat Gran (auto) 0.22 H Absolute Neuts (auto) 11.4 H Absolute Nucleated RBC 0.000 Nucleated RBC % (auto) 0.0 PT INR APTT PTT (Heparin Protocol) Anion Gap 14 Estim Creat Clear Calc 74.7 Estimated GFR > 60 Random Glucose 91 Lactic Acid Calcium 9.7 Magnesium 2.8 H Total Bilirubin 0.9 Direct Bilirubin 0.4 AST 37 ALT 94 H Alkaline Phosphatase 181 H Troponin I High Sens C-Reactive Protein B-Natriuretic Peptide Total Protein 8.0 Albumin 3.7 Lipase 32 Procalcitonin COVID-19 (RASHAD) COVID-19 Clin Com 05/25/21 05/25/21 05/25/21 18:50 18:51 19:48 MCV MCH MCHC RDW Plt Count MPV Immature Gran % (Auto) Neut % (Auto) Lymph % (Auto) [place] % (Auto) Eos % (Auto) Baso % (Auto) Lymph # (Auto) [place] # (Auto) Eos # (Auto) Baso # (Auto) Abs Immat Gran (auto) Absolute Neuts (auto) Absolute Nucleated RBC Nucleated RBC % (auto) PT INR APTT PTT (Heparin Protocol) Anion Gap Estim Creat Clear Calc Estimated GFR Random Glucose Lactic Acid 1.4 Calcium Magnesium Total Bilirubin Direct Bilirubin AST ALT Alkaline Phosphatase Troponin I High Sens 6.6 C-Reactive Protein B-Natriuretic Peptide 15 Total Protein Albumin Lipase Procalcitonin COVID-19 (RASHAD) Negative COVID-19 [employer] See Note 05/25/21 05/25/21 05/26/21 20:48 20:48 03:31 MCV 88.8 MCH 29.8 MCHC 33.5 RDW 14.6 Plt Count 675 H MPV 8.6 L Immature Gran % (Auto) Neut % (Auto) Lymph % (Auto) [place] % (Auto) Eos % (Auto) Baso % (Auto) Lymph # (Auto) [place] # (Auto) Eos # (Auto) Baso # (Auto) Abs Immat Gran (auto) Absolute Neuts (auto) Absolute Nucleated RBC 0.000 Nucleated RBC % (auto) 0.0 PT Cancelled 13.5 H INR Cancelled 1.2 H APTT 38.1 H PTT (Heparin Protocol) Anion Gap Estim Creat Clear Calc Estimated GFR Random Glucose Lactic Acid Calcium Magnesium Total Bilirubin Direct Bilirubin AST ALT Alkaline Phosphatase Troponin I High Sens C-Reactive Protein B-Natriuretic Peptide Total Protein Albumin Lipase Procalcitonin COVID-19 (RASHAD) COVID-19 Clin Com 09/01/21 09/01/21 09/01/21 03:31 03:31 03:31 MCV MCH MCHC RDW Plt Count MPV Immature Gran % (Auto) Neut % (Auto) Lymph % (Auto) [place] % (Auto) Eos % (Auto) Baso % (Auto) Lymph # (Auto) [place] # (Auto) Eos # (Auto) Baso # (Auto) Abs Immat Gran (auto) Absolute Neuts (auto) Absolute Nucleated RBC Nucleated RBC % (auto) PT 13.0 INR 1.1 APTT PTT (Heparin Protocol) 39.3 L Anion Gap 18 Estim Creat Clear Calc 74.2 Estimated GFR > 60 Random Glucose 114 Lactic Acid Calcium 9.0 D Magnesium Total Bilirubin Direct Bilirubin AST ALT Alkaline Phosphatase Troponin I High Sens C-Reactive Protein 24.68 H B-Natriuretic Peptide Total Protein Albumin Lipase Procalcitonin 0.11 COVID-19 (RASHAD) COVID-19 Clin Com ITS Impressions Abdomen Ultrasound 05/25/21 16:48 IMPRESSION: No cholelithiasis or evidence of cholecystitis. Chest X-Ray 05/25/21 16:49 IMPRESSION: Nonspecific rounded opacity projecting over the right lower lung. Recommend departmental radiographs or CT chest for further evaluation. Chest CTA 05/25/21 18:22 IMPRESSION: Large right-sided pulmonary emboli with associated small right effusion and well-defined area of patchy infiltrate with microcystic areas. A fracture would include pneumonia versus pulmonary infarct. No evidence of right heart strain. VTE: positive This critical result was discussed with Syeda dietz at 7:20 PM on the evening of the exam and it was ascertained that the content and urgency of the report was understood at the time of direct communication. Venous Duplex 05/25/21 19:23 IMPRESSION: Extensive DVT throughout the right lower extremity from the common femoral vein to the tibioperoneal trunk. No DVT demonstrated in the left lower extremity. Urgent findings were discussed with SHERWIN Meek at 8:39pm. TTE 05/26/21 - Normal left ventricular size and systolic function.? - Diastolic function is normal for age.? - Normal right ventricular cavity size and systolic function.? ? - There is moderate dilatation of the ascending aorta. ?? Assessment and Plan (1) DVT (deep venous thrombosis): Status: Acute (2) Pulmonary embolism: Status: Acute Assessment and Plan: hospital d#2 65yo M with HTN, strong FHx of VTE [2 daughters] admitted for large R-sided PE + extensive RLE DVT # PE - continue heparin gtt - no signs of R heart strain - will send thrombophila workup but interpret antigen/activity tests with caution as pt already on AC # extensive DVT RLE from CFV to tibioperoneal trunkn - per Vascular Surgery, plan venous angiogram with insertion of thrombolysis catheter possible plasty possible stent possible vena cava filter placement tomorrow - continue heparin gtt # RLL PNA/pleural effusion - continue ceftriaxone + doxycycline d#2, follow BCx, trend PCT, check UAgs # HTN - hold diltiazem, losartan/HCTZ for now until postop # VTE ppx - heparin gtt Quality Stroke Does the patient have a stroke diagnosis?: No VTE Prior VTE?: Yes Approximate Date of Prior VTE: 05/25/21 VTE Risk Level:: Medical - moderate - high VTE Device Contraindication: Treatment Not Indicated VTE Drug Contraindication: N/A - Med Ordered
[2021-05-26] MEDS: Heparin Sodium,Porcine 5,000 UNIT/ML VIAL 3500 UNIT IVPUSH (18:05)
[2021-05-26] MEDS: cefTRIAXone sodium 1 GM in 0.9 % Sodium Chloride 50 ML IV (18:06)
[2021-05-26] MEDS: Acetaminophen 325 MG TABLET 650 MG PO (20:15)
[2021-05-26 22:25] LABS: Glucose Urine UA NEG (NEG); Leukocyte Esterase Urine TRACE (NEG); Nitrite Urine NEG (NEG); Specific Gravity - Urine <= 1.005 (1.005-1.025); Urine Blood NEG (NEG); Urine Ketones NEG (NEG); Urine Protein NEG (NEG-TRACE)
[2021-05-26 22:26] LABS: Appearance Urine CLEAR; Color Urine YELLOW
[2021-05-26 22:32] LABS: Bacteria Urine 1+ /LPF; RBC Urine 0 /HPF (0); Squamous Epithelial Cell Urine 1+ /LPF; WBC Urine 0-2 /HPF (0-4)
--- NOTE | 2021-05-26 22:43 | PC.NURSE ---
Addendum entered by Trudy Holliday RN 05/26/21 23:04: order to leave heparin gtt running regardless of stent placement. Original Note: pt going for stent placement for DVT in am, currently on heparin gtt running at 16 units/kg/hr (14.15ml/hr). No orders found to stop heparin gtt in am or leave it running. Contacted consumer attorney vascular, waiting call back.
[2021-05-27] VITALS (15 sets, daily range): BP systolic 120–141; BP diastolic 73–91; PULSE 76–91; RESP 14–19; TEMP 36.9–37.3; O2SAT 95–98
[2021-05-27 00:31] LABS: PTT Heparin Drip 74.5 SEC (53-77.9)
--- NOTE | 2021-05-27 00:50 | PC.NURSE ---
Addendum entered by Trudy Holliday RN 05/27/21 00:51: next draw ordered for 0600 05/27/21 Original Note: midnight ptthd came back WNL at 74.5. No change in rate. heparin gtt continues to run at 16 unit/kg/hr
[2021-05-27] MEDS: Heparin Sodium,Porcine/1/2NS 25,000 UNIT/250 ML IV.SOLN 14.15 UNIT IVCONT (04:26)
[2021-05-27 06:22] LABS: Hematocrit 33.8 % (42-52); Hemoglobin 11.4 g/dl (14.0-18.0); Mean Corpuscular HGB Conc 33.7 g/dl (31.0-36.0); Mean Corpuscular Hemoglobin 29.5 pg (27.0-33.0); Mean Corpuscular Volume 87.6 fL (80-98); Mean Platelet Volume 8.8 fL (9.4-12.4); Platelet Count 728 X10*3/uL (160-400); Red Blood Count 3.86 X10*6/uL (4.60-5.80); Red Cell Distribution Width 14.5 % (11.0-16.0); White Blood Count 12.4 X10*3/uL (4.8-10.8)
[2021-05-27 06:31] LABS: PTT Heparin Drip 69.6 SEC (53-77.9)
--- NOTE | 2021-05-27 06:41 | PC.NURSE ---
ptt hd redraw 0600 came back WNL at 69.6. New ptthd redraw ordered for 0605/28
[2021-05-27 07:08] LABS: Alanine Aminotransferase 64 U/L (0-40)
[2021-05-27 07:10] LABS: Alkaline Phosphatase 140 U/L (39-117); Anion Gap 11 (12-20); Aspartate Amino Transferase 26 U/L (5-37); Bilirubin Total 0.6 mg/dL (0.0-1.0); Blood Urea Nitrogen 11 mg/dL (9-16); Calcium 9.2 mg/dL (8.4-10.2); Carbon Dioxide 27 mmol/L (22-29); Chloride 104 mmol/L (96-108); Creatinine Clr Calc Pharmacy 86.7; Estimated Glomerular Filt Rate > 60; Glucose Random 95 mg/dL (60-115); Potassium 3.9 mmol/L (3.3-5.1); Sodium 138 mmol/L (135-145)
[2021-05-27] MEDS: Heparin Sodium,Porcine/1/2NS 25,000 UNIT/250 ML IV.SOLN 5 UNIT IVCONT (08:25)
[2021-05-27] MEDS: 0.9 % Sodium Chloride 1,000 ML 20 ML IVCONT (08:25)
--- NOTE | 2021-05-27 08:55 | P.OP_ITS ---
Operative Note Operative Note Date of Service: 05/27/21 Narrative: Angiogram report from [facility] Preoperative diagnosis: DVT with pulmonary embolism Postoperative diagnosis: Same Procedure: 1. Ultrasound-guided rightcommon femoral access 2. Inferior vena cavogram 3. Insertion of right common femoral vein in to inferior vena cava thrombolysis catheter Surgeon:Rashaad Martínez M.D. Sales Project Administrator:Myrna Anesthesia: Local with moderate conscious sedation for a total of 27 minutes, performed by me Specimens:none Drains:none Estimated blood loss: Less than 10 ml Indications: 65-year-old gentleman who presented to the hospital with extensive DVT and pulmonary embolism now presents for endovascular intervention. The patient has signed the informed consent after reviewing risks, complications, benefits, and alternatives previously discussed with the patient in my office. The patient was given the opportunity to ask any additional questions or voice any concerns. All questions were answered to the patient's satisfaction. Procedure in detail: Patient was brought to the angiography suite prior to which a time-out was called for patient identification and site verification. Bilateral groins were prepped and draped in the standard surgical fashion. Under ultrasound guidance right common femoral vein was punctured with micro puncture needle and wire. Subsequently a precision 4 [place] sheath was then placed. Cinemacraftson wire was advanced to the level of the inferior vena cava. Vena cavogram was to undertaken through the sheath. Subsequently we placed a [place] Doug have 5 Canadian 20 cm length infusion catheter parked from the common femoral vein into the inferior vena cava. Angiogram was undertaken through this. Thrombus was noted throughout. At this point this was tacked into position. TPA and heparin were then attached in infusion was started. Patient tolerated the procedure well. Return to PACU with stable vitals. Interpretation of films: 1. Ultrasound demonstrates appropriate femoral puncture. Image of which was saved. 2. Vena cavogram demonstrated cava was less than 3 cm with minimal thrombus. 3. Iliac images demonstrate thrombus down through the iliacs common femoral had significant thrombus no flow down below. Conclusion: 1. Successful placement of thrombolysis catheter with follow-up surveillance scheduled for tomorrow. This note is constructed using voice recognition software. While every effort has been made to ensure accuracy, cyber intelligence analyst errors may have been included. Thank you for allowing me to participate in the care of your patient. Yours sincerely, Rashaad Martínez MD, FACS, R.P.V.I.
[2021-05-27] MEDS: fentaNYL citrate/PF 100 MCG/2 ML VIAL 25 MCG IVPUSH (09:01)
[2021-05-27] MEDS: Acetaminophen 325 MG TABLET 650 MG PO (09:09)
[2021-05-27] MEDS: oxyCODONE HCl Immed Release 5 MG TABLET PO (09:09)
[2021-05-27 09:45] LABS: Anti-Thrombin III Activity 136 % normal (80-135)
[2021-05-27] MEDS: Doxycycline Hyclate 100 MG in 0.9 % Sodium Chloride 250 ML 166.67 MG IV ×2 (10:25→19:41)
[2021-05-27] MEDS: 0.9 % Sodium Chloride Flush 3 ML SYRINGE IVFLUSH (10:25)
[2021-05-27 10:41] LABS: Cardiolipin IgG Ab <2.0 GPL-U/mL; Cardiolipin IgM Ab 2.4 MPL-U/mL
[2021-05-27 12:38] LABS: Fibrinogen > 700 MG/DL (259-690)
[2021-05-27 13:31] LABS: Hexagonal Phase Neutralization POSITIVE (NEGATIVE); Thrombin Clotting Time 28 sec (13-19)
[2021-05-27 13:36] LABS: PTT (LAC) Screen 46 sec (< OR = 40)
--- NOTE | 2021-05-27 13:39 | PC.NURSE ---
TRANSFER FROM PACU AT 0942. POSITIVE PEDAL PULSES WITH DOPPLAR TO BOTH EXTREMITIES. RIGHT LEG SWELLING NOTED. DENIES PAIN OR TENDERNESS. DRESSING TO RIGHT GROIN C/D/I. SET RATES OF HEPARIN 500 UNITS/HR = 5 ML/HR AND ALTEPLASE 0.5 MG/HR = 50 ML/HR INFUSING INTO RIGHT GROIN THROMBOLYSIS CATHETER. BOTH GTTS STARTED IN IR AT 0825. PREVIOUS HEPARIN GTT TURNED OFF PER IR AT 0710. ALL REPEAT LAB ORDERS ENTERED BY THIS RN PER ORDER SHEET: PTT Q8HR AND FIBRINOGEN Q4HR FROM TIME OF HEPARIN AND ALTEPLASE GTTS STARTED. A&O X 4, DENIES PAIN AT THIS TIME. RESTING COMFORTABLY. EDUCATED ON REMAINING ON BEDREST, HOB 30, AND LOG ROLL IF NECESSARY. VOIDS USING URINAL. ABLE TO EAT AND DRINK UNTIL MIDNIGHT 05/28 - BACK TO OR IN AM PER DR. MIRANDA.
--- NOTE | 2021-05-27 14:01 | P.PNIM_ITS ---
Subjective Subjective Date of Service: 05/27/21 Interval History: back from OR, monitoring in ICU but on IMC status no bleeding from groin puncture no dyspnea on room air Review of Systems Review of Systems: Yes all other systems are reviewed and are negative Physical Exam Vital Signs: Vital Signs: Last Vital Signs Temp 98.8 F 05/27/21 09:28 Pulse 80 05/27/21 09:28 Resp 18 05/27/21 09:28 BP 137/90 H 05/27/21 09:28 Pulse Ox 98 05/27/21 09:28 Body Mass Index 28.9 Gen: in no acute distress HEENT: sclera anicteric, moist mucus membranes Neck: supple Lungs: clear to auscultation bilaterally Heart: regular rate and rhythm, no murmurs Abd: soft, non-tender, non-distended Ext: RLE swollen, R groin femoral puncture site with catheter, no bleeding Skin: warm/well-perfused Neuro: alert and oriented x3, no focal findings Psych: appropriate affect Objective Data Active Medications Acetaminophen (Acetaminophen 325 Mg Tablet) 650 mg PO Q6H PRN PRN Reason: Pain, Mild (Pain Scale 1-3) Last Admin: 05/27/21 09:09 Dose: 650 mg Documented by: NANCY Heparin Sodium (Porcine) (Heparin Sodium,Porcine 5,000 Unit/Ml Vial) 3,500 unit 40 unit/kg (3500 unit) IVPUSH PROTOCOL BOLUS PRN; Protocol PRN Reason: 40 unit/kg - Heparin Protocol Last Admin: 05/26/21 18:05 Dose: 3,500 unit Documented by: MALORIE Heparin Sodium (Porcine) (Heparin Sodium,Porcine 5,000 Unit/Ml Vial) 7,100 unit 80 unit/kg (7100 unit) IVPUSH PROTOCOL BOLUS PRN; Protocol PRN Reason: 80 unit/kg - Heparin Protocol Ceftriaxone Sodium 1 gm/ (Sodium Chloride) 50 mls @ 100 mls/hr IV Q24H [facility] Last Infusion: 05/26/21 18:41 Dose: 0 mls/hr Documented by: MALORIE Doxycycline Hyclate 100 mg/ (Sodium Chloride) 250 mls @ 166.67 mls/hr IV Q12H [facility] Last Infusion: 05/27/21 12:21 Dose: 0 mls/hr Documented by: CEE Heparin Sodium/Sodium Chloride () 25,000 unit in 250 mls @ 0 mls/hr IVCONT .Q0M MIKA; Protocol Last Titration: 05/27/21 07:10 Dose: 0 units/kg/hr, 0 mls/hr Documented by: CEE Cosigned by: ARCADIO Alteplase, Recombinant 5 mg/ (Sodium Chloride) 500 mls @ 50 mls/hr IV .Q10H MIKA Stop: 05/27/21 17:44 Last Admin: 05/27/21 08:25 Dose: 0.5 mg/hr, 50 mls/hr Documented by: CEE Comments: HUNG IN IR, ADMIN TIME PER PAPERWORK Heparin Sodium/Sodium Chloride () 25,000 unit in 250 mls @ 5 mls/hr IVCONT .Q24H MIKA Last Admin: 05/27/21 08:25 Dose: 500 unit/hr, 5 mls/hr Documented by: CEE Cosigned by: ARCADIO Comments: HUNG IN IR, ADMIN TIME PER PAPERWORK Sodium Chloride (Ns) 1,000 mls @ 20 mls/hr IVCONT .Q24H MIKA Last Admin: 05/27/21 08:25 Dose: 20 mls/hr Documented by: CEE Comments: HUNG IN IR, ADMIN PER PAPERWORK Magnesium Hydroxide (Milk Of Magnesia 30 Ml Oral.Susp) 30 ml PO DAILY PRN PRN Reason: Constipation Melatonin (Melatonin 3 Mg Tablet) 6 mg PO BEDTIME PRN PRN Reason: Insomnia Last Admin: 05/25/21 23:16 Dose: 6 mg Documented by: NAYANA Morphine Sulfate (Morphine Sulfate 4 Mg/Ml Cartridge) 1 mg IVPUSH Q4H PRN; Protocol PRN Reason: Pain, Severe (Pain Scale 7-10) Last Admin: 05/26/21 18:02 Dose: 1 mg Documented by: MALORIE Oxycodone HCl (Oxycodone Hcl Immed Release 5 Mg Tablet) 5 mg PO Q4H PRN PRN Reason: Pain, Moderate (Pain Scale 4-6 Last Admin: 05/27/21 09:09 Dose: 5 mg Documented by: NANCY Pharmacy Consult (Consult Rx Perform Med Rec) 1 each MISCELLANE ONCE PRN PRN Reason: Consult order Senna (Sennosides 8.6 Mg Tablet) 17.2 mg PO BEDTIME PRN PRN Reason: Constipation Sodium Chloride (0.9 % Sodium Chloride Flush 3 Ml Syringe) [facility] Last Admin: 05/27/21 10:25 Dose: 3 ml Documented by: CEE Labs CBC & Chem 7: 05/27/21 05:47 05/27/21 05:47 Labs: Laboratory Results - last 24 hr 05/26/21 05/26/21 05/26/21 16:08 16:08 16:09 MCV MCH MCHC RDW Plt Count MPV Absolute Nucleated RBC Nucleated RBC % (auto) PTT (Heparin Protocol) 49.0 L D Fibrinogen LA PTT Screen 46 H LA Thrombin Time 28 H dRVV Screen 36 Lupus Anticoag Interp SEE NOTE Antithrombin III Activ 136 H Anion Gap Estim Creat Clear Calc Estimated GFR Random Glucose Calcium Total Bilirubin AST ALT Alkaline Phosphatase Total Protein Albumin Urine Color Urine Appearance Urine pH Ur Specific [place] Urine Protein Urine Glucose (UA) Urine Ketones Urine Blood Urine Nitrite Ur Leukocyte Esterase Urine RBC Urine WBC Ur Squamous Epith Cells Urine Bacteria Anti-Cardiolipin IgG Ab <2.0 Anti-Cardiolipin IgM Ab 2.4 05/26/21 05/27/21 05/27/21 22:00 00:11 05:47 MCV 87.6 MCH 29.5 MCHC 33.7 RDW 14.5 Plt Count 728 H MPV 8.8 L Absolute Nucleated RBC 0.000 Nucleated RBC % (auto) 0.0 PTT (Heparin Protocol) 74.5 D Fibrinogen LA PTT Screen LA Thrombin Time dRVV Screen Lupus Anticoag Interp Antithrombin III Activ Anion Gap Estim Creat Clear Calc Estimated GFR Random Glucose Calcium Total Bilirubin AST ALT Alkaline Phosphatase Total Protein Albumin Urine Color YELLOW Urine Appearance CLEAR Urine pH 6.0 Ur Specific [place] <= 1.005 Urine Protein NEG Urine Glucose (UA) NEG Urine Ketones NEG Urine Blood NEG Urine Nitrite NEG Ur Leukocyte Esterase TRACE H Urine RBC 0 Urine WBC 0-2 Ur Squamous Epith Cells 1+ Urine Bacteria 1+ Anti-Cardiolipin IgG Ab Anti-Cardiolipin IgM Ab 05/27/21 05/27/21 05/27/21 05:47 05:47 12:21 MCV MCH MCHC RDW Plt Count MPV Absolute Nucleated RBC Nucleated RBC % (auto) PTT (Heparin Protocol) 69.6 Fibrinogen > 700 H LA PTT Screen LA Thrombin Time dRVV Screen Lupus Anticoag Interp Antithrombin III Activ Anion Gap 11 L Estim Creat Clear Calc 86.7 Estimated GFR > 60 Random Glucose 95 Calcium 9.2 Total Bilirubin 0.6 AST 26 ALT 64 H Alkaline Phosphatase 140 H D Total Protein 6.0 L D Albumin 3.0 L Urine Color Urine Appearance Urine pH Ur Specific [place] Urine Protein Urine Glucose (UA) Urine Ketones Urine Blood Urine Nitrite Ur Leukocyte Esterase Urine RBC Urine WBC Ur Squamous Epith Cells Urine Bacteria Anti-Cardiolipin IgG Ab Anti-Cardiolipin IgM Ab Microbiology Microbiology Results: Microbiology 05/25/21 18:51 Blood Culture - Preliminary Blood - Venous No growth after 24 hours. 05/25/21 18:51 Blood Culture - Preliminary Blood - Venous No growth after 24 hours. Assessment and Plan (1) DVT (deep venous thrombosis): Status: Acute (2) Pulmonary embolism: Status: Acute Assessment and Plan: hospital d#3 65yo M with HTN, strong FHx of VTE [2 daughters] admitted for large R-sided PE + extensive RLE DVT # extensive DVT RLE from CFV to tibioperoneal trunk # acute PE - s/p ultrasound-guided right common femoral access, inferior vena cavogram, insertion of right common femoral vein in to inferior vena cava thrombolysis catheter today, running alteplase + heparin - to OR for surveillance tomorrow - no signs of R heart strain on TTE - thrombophilia workup sent but interpret antigen/activity tests with caution as pt was already on AC # RLL PNA/pleural effusion - continue ceftriaxone + doxycycline d#3, BCx NGTD, trend PCT, urinary antigens pending # HTN - hold diltiazem + losartan/HCTZ for now until postop # VTE ppx - heparin gtt Quality Stroke Does the patient have a stroke diagnosis?: No VTE Prior VTE?: Yes Approximate Date of Prior VTE: 05/25/21 VTE Risk Level:: Medical - moderate - high VTE Device Contraindication: Treatment Not Indicated VTE Drug Contraindication: N/A - Med Ordered
--- NOTE | 2021-05-27 15:00 | MHC.CM.PN ---
Patient was transferred to ICU from the OR. Patient is from home without services. Continue to monitor for d/c needs.
--- NOTE | 2021-05-27 15:07 | PM.CCPN ---
Subjective Subjective Date of Service: 05/27/21 Critical Care Time (minutes): 0 Comment: Mr. Masterson is transferred to the ICU this morning following percutaneous angioplasty by Dr. Martínez in IR. The patient is a 65-year-old male with a past medical history of hypertension.? He recently returned from driving back and forth to [place]. The patient presented to the hospital on May 25 complaining of abdominal pain times 2-3 weeks associated with nausea and vomiting.? In the ED, vital signs were unremarkable.? Breathing easy with normal oxygenation.? Exam was otherwise remarkable for some right upper quadrant abdominal tenderness, without guarding or rebound. Patient also complained of right lower extremity pain the past 3 weeks. ?Has family history of DVT/PE.? Lab evaluation was notable for mild leukocytosis and thrombocytosis.? BUN/creatinine were 17/1.0.? Mildly increased ALT and alk-phos.? Albumin was 3.7, lipase normal.? Abdominal ultrasound was unremarkable. CTPA showed large PE in distal right main PA chest showed evidence of pulmonary embolism in the right main pulmonary artery.? Lung parenchyma showed a broad almost wedge-shaped consolidation in the lateral right lower lobe, more suggestive of a pulmonary infarction than a pneumonia.? Venous duplex scan showed extensive DVT throughout the right lower extremity. The patient was anticoagulated and given antibiotics and admitted to Medicine.? He was seen yesterday in consultation by Dr. Martínez because of the extensive right lower extremity DVT he was scheduled for right lower extremity venous angiogram with insertion of thrombolysis catheter.? He has been hemodynamically stable, breathing easy, with normal oxygenation throughout his entire hospital stay. This morning he underwent inferior venacavogram and insertion of an IVC thrombolysis catheter via the right femoral vein in IR by Dr. Martínez. ?Venacavogram demonstrated that the IVC had minimal thrombus, but there was significant thrombus from the iliacs down, with no flow down below.? tPA was started at 0.5ug/hr. On my exam in the ICU, the patient is fully awake and appropriate.? Breathing easy with sat of 99% on room air.? Heart rate is 80s, sinus rhythm.? Blood pressure is about 120/80.? He is afebrile.? Right lower extremity is noticeably bigger and more tense than left, from his ankle to his groin.? The right femoral dressing is clean.? Both legs are warm throughout. LABORATORY DATA this morning: ?As below.? Fibrinogen at noon time was greater than 700. IMPRESSION:? 65-year-old man presented with extensive DVT and right mainstem PE after driving up from [place].? Thrombolysis catheter placed this morning.? Plan 24 hours of tPA and then re-evaluation of flow tomorrow morning. Admitted to ICU for hemodynamic and hematologic monitoring. Follow-up per Dr. Martínez. Time:? . Physical Exam Vital Signs: Vital Signs: Last Vital Signs Temp 98.8 F 05/27/21 09:28 Pulse 80 05/27/21 09:28 Resp 18 05/27/21 09:28 BP 137/90 H 05/27/21 09:28 Pulse Ox 98 05/27/21 09:28 Body Mass Index 28.9 Objective Data Labs CBC & Chem 7: 05/27/21 05:47 05/27/21 05:47 Labs: Laboratory Results - last 24 hr 05/26/21 05/26/21 05/26/21 16:08 16:08 16:09 WBC RBC Hgb Hct MCV MCH MCHC RDW Plt Count MPV Absolute Nucleated RBC Nucleated RBC % (auto) PTT (Heparin Protocol) 49.0 L D Fibrinogen LA PTT Screen 46 H LA Thrombin Time 28 H dRVV Screen 36 Lupus Anticoag Interp SEE NOTE Antithrombin III Activ 136 H Sodium Potassium Chloride Carbon Dioxide Anion Gap BUN Creatinine Estim Creat Clear Calc Estimated GFR Random Glucose Calcium Total Bilirubin AST ALT Alkaline Phosphatase Total Protein Albumin Urine Color Urine Appearance Urine pH Ur Specific [place] Urine Protein Urine Glucose (UA) Urine Ketones Urine Blood Urine Nitrite Ur Leukocyte Esterase Urine RBC Urine WBC Ur Squamous Epith Cells Urine Bacteria Anti-Cardiolipin IgG Ab <2.0 Anti-Cardiolipin IgM Ab 2.4 05/26/21 05/27/21 05/27/21 22:00 00:11 05:47 WBC 12.4 H RBC 3.86 L Hgb 11.4 L Hct 33.8 L MCV 87.6 MCH 29.5 MCHC 33.7 RDW 14.5 Plt Count 728 H MPV 8.8 L Absolute Nucleated RBC 0.000 Nucleated RBC % (auto) 0.0 PTT (Heparin Protocol) 74.5 D Fibrinogen LA PTT Screen LA Thrombin Time dRVV Screen Lupus Anticoag Interp Antithrombin III Activ Sodium Potassium Chloride Carbon Dioxide Anion Gap BUN Creatinine Estim Creat Clear Calc Estimated GFR Random Glucose Calcium Total Bilirubin AST ALT Alkaline Phosphatase Total Protein Albumin Urine Color YELLOW Urine Appearance CLEAR Urine pH 6.0 Ur Specific [place] <= 1.005 Urine Protein NEG Urine Glucose (UA) NEG Urine Ketones NEG Urine Blood NEG Urine Nitrite NEG Ur Leukocyte Esterase TRACE H Urine RBC 0 Urine WBC 0-2 Ur Squamous Epith Cells 1+ Urine Bacteria 1+ Anti-Cardiolipin IgG Ab Anti-Cardiolipin IgM Ab 05/27/21 05/27/21 05/27/21 05:47 05:47 12:21 WBC RBC Hgb Hct MCV MCH MCHC RDW Plt Count MPV Absolute Nucleated RBC Nucleated RBC % (auto) PTT (Heparin Protocol) 69.6 Fibrinogen > 700 H LA PTT Screen LA Thrombin Time dRVV Screen Lupus Anticoag Interp Antithrombin III Activ Sodium 138 Potassium 3.9 Chloride 104 Carbon Dioxide 27 Anion Gap 11 L BUN 11 Creatinine 0.89 Estim Creat Clear Calc 86.7 Estimated GFR > 60 Random Glucose 95 Calcium 9.2 Total Bilirubin 0.6 AST 26 ALT 64 H Alkaline Phosphatase 140 H D Total Protein 6.0 L D Albumin 3.0 L Urine Color Urine Appearance Urine pH Ur Specific [place] Urine Protein Urine Glucose (UA) Urine Ketones Urine Blood Urine Nitrite Ur Leukocyte Esterase Urine RBC Urine WBC Ur Squamous Epith Cells Urine Bacteria Anti-Cardiolipin IgG Ab Anti-Cardiolipin IgM Ab Microbiology Microbiology Results: Microbiology 05/25/21 18:51 Blood - Venous Blood Culture - Preliminary No growth after 24 hours. 05/25/21 18:51 Blood - Venous Blood Culture - Preliminary No growth after 24 hours. Quality Stroke Does the patient have a stroke diagnosis?: No VTE Prior VTE?: Yes Approximate Date of Prior VTE: 05/25/21 VTE Risk Level:: Medical - moderate - high VTE Device Contraindication: Treatment Not Indicated VTE Drug Contraindication: N/A - Med Ordered
[2021-05-27] MEDS: cefTRIAXone sodium 1 GM in 0.9 % Sodium Chloride 50 ML IV (17:06)
[2021-05-27 17:28] LABS: Partial Thromboplastin Time 31.5 SEC (24.1-38.0)
[2021-05-27 17:37] LABS: Fibrinogen > 700 MG/DL (259-690)
[2021-05-27 20:48] LABS: Fibrinogen > 700 MG/DL (259-690)
[2021-05-28] VITALS (7 sets, daily range): BP systolic 127–158; BP diastolic 73–85; PULSE 73–90; RESP 16–20; TEMP 36.3–37.3; O2SAT 95–97
[2021-05-28] MEDS: 0.9 % Sodium Chloride Flush 3 ML SYRINGE IVFLUSH ×3 (00:11→22:52)
[2021-05-28 00:51] LABS: Partial Thromboplastin Time 30.7 SEC (24.1-38.0)
[2021-05-28 00:53] LABS: Fibrinogen > 700 MG/DL (259-690)
--- NOTE | 2021-05-28 03:39 | PC.NURSE ---
CARE ASSUMED 23:15...AWAKE..ALERT..ORIENTED X3...VSS...RESPIRATIONS EASY ON ROOM AIR...RIGHT FEMORAL THROMBOLYTIC CATHETER INTACT....DRESSING DRY INTACT...TPA 0.5 MG/HR (50 CC/HR) & CONTINUOUS HEPARIN DRIP 500 UNITS/HR (5 CC/HR)...REMAINS WITH RIGHT LEG EDEMA...BOTH LOWER LEGS WARM TO TOUCH..(+) BILATERAL DOPPLER PULSES AUDIBLE...NPO AFTER 12AM...AWARE OF NPO STATUS AND BEDREST...DENIES/OFFERS NO COMPLAINTS..NO SIGNS OF BLEEDING
[2021-05-28 05:51] LABS: Hematocrit 32.9 % (42-52); Mean Corpuscular HGB Conc 33.4 g/dl (31.0-36.0); Mean Corpuscular Hemoglobin 29.8 pg (27.0-33.0); Mean Corpuscular Volume 89.2 fL (80-98); Mean Platelet Volume 8.8 fL (9.4-12.4); Platelet Count 600 X10*3/uL (160-400); Red Blood Count 3.69 X10*6/uL (4.60-5.80); Red Cell Distribution Width 14.6 % (11.0-16.0)
[2021-05-28 06:18] LABS: Fibrinogen > 700 MG/DL (259-690)
[2021-05-28] MEDS: 0.9 % Sodium Chloride 1,000 ML 20 ML IVCONT (07:20)
[2021-05-28 07:48] LABS: Procalcitonin 0.08 ng/mL
--- NOTE | 2021-05-28 07:57 | PC.NURSE ---
Pt transported by transmission supervisor on monitor to IR at 0715.
[2021-05-28] MEDS: iohexoL 350 MG/ML 100 ML INFUS..BTL IV (09:01)
--- NOTE | 2021-05-28 09:48 | W.PM.OPN ---
Operative Note Operative Note Date of Service: 05/28/21 Narrative: Angiogram report from [facility] Preoperative diagnosis: DVT with pulmonary embolism Postoperative diagnosis: Same Procedure: 1. Thrombolysis follow-up imaging 2. Insertion of vena cava filter Surgeon:Rashaad Martínez M.D. Hydroelectric Operator:Myrna Anesthesia: Local with moderate conscious sedation for a total of 27 minutes, performed by az Specimens:none Drains:none Estimated blood loss: Less than 10 ml Indications: Patient has extensive DVT with pulmonary embolism. Thrombolysis catheter was placed yesterday. Patient now for follow-up evaluation The patient has signed the informed consent after reviewing risks, complications, benefits, and alternatives previously discussed with the patient. The patient was given the opportunity to ask any additional questions or voice any concerns. All questions were answered to the patient's satisfaction. Procedure in detail: Patient was brought to the angiography suite prior to which a time-out was called for patient identification and site verification. Bilateral groins were prepped and draped in the standard surgical fashion. Through the [employer] catheter follow-up imaging was then undertaken. There did appear to be significant improvement in the thrombus. There was minimal residual thrombus in the right common iliac vein. At this point we exchanged out for a 8 [place] sheath over a Glidewire Advantage wire. A [employer] [place] IVC filter was then deployed in the L2 - L3 interspace. Completion vena cavogram demonstrated appropriate placement. Catheter wire sheath were then removed. Direct pressure was held for 10 minutes. Patient tolerated the procedure well. Compression dressing was applied. Interpretation of films: 1. Follow-up vena cavogram demonstrated resolution of thrombus within the iliac and common femoral. There was minimal residual thrombus in the right common femoral vein. 2. Imaging demonstrated appropriate placement of IVC filter. Conclusion: 1. Successful thrombolysis 2. Successful IVC filter placement 3. Patient can be started on formal anticoagulation for DVT and PE 4 hours postprocedure This note is constructed using voice recognition software. While every effort has been made to ensure accuracy, four h agent errors may have been included. Thank you for allowing me to participate in the care of your patient. Yours sincerely, Rashaad Martínez MD, FACS, R.P.V.I.
[2021-05-28 10:01] LABS: Fibrinogen > 700 MG/DL (259-690)
[2021-05-28] MEDS: oxyCODONE HCl Immed Release 5 MG TABLET PO (10:48)
[2021-05-28] MEDS: Doxycycline Hyclate 100 MG in 0.9 % Sodium Chloride 250 ML 166.67 MG IV ×2 (10:48→21:09)
--- NOTE | 2021-05-28 12:10 | HO.PM.IMPN ---
Subjective Subjective Date of Service: 05/28/21 Interval History: pulm embolism , dvt Review of Systems Patient denies any shortness of breath or chest pain or abdominal pain or fever chills or cough phlegm. Physical Exam Vital Signs: Vital Signs: Last Vital Signs Temp 98.4 F 05/28/21 11:39 Pulse 77 05/28/21 11:39 Resp 16 05/28/21 11:39 BP 158/84 H 05/28/21 11:39 Pulse Ox 97 05/28/21 11:39 Body Mass Index 28.9 Physical exam: Cvs: rrr, [id number] , no murmur res: grossly fair air entry, no ronchii or rales. abd: no rebound or guarding ,nt, bs present. ext pulses present , no cyanosis right femoral area small possible hematoma , no gross bleedin neuro: axo3 , nonfocal. Objective Data Active Medications Acetaminophen (Acetaminophen 325 Mg Tablet) 650 mg PO Q6H PRN PRN Reason: Pain, Mild (Pain Scale 1-3) Last Admin: 05/27/21 09:09 Dose: 650 mg Documented by: NANCY Ceftriaxone Sodium 1 gm/ (Sodium Chloride) 50 mls @ 100 mls/hr IV Q24H [facility] Last Infusion: 05/27/21 17:39 Dose: 0 mls/hr Documented by: CEE Doxycycline Hyclate 100 mg/ (Sodium Chloride) 250 mls @ 166.67 mls/hr IV Q12H [facility] Last Admin: 05/28/21 10:48 Dose: 166.67 mls/hr Documented by: HAYDEN Heparin Sodium/Sodium Chloride () 25,000 unit in 250 mls @ 5 mls/hr IVCONT .Q24H [facility] Last Admin: 05/28/21 08:50 Dose: Not Given Documented by: HAYDEN Non-Admin Reason: Medication Discontinued Sodium Chloride (Ns) 1,000 mls @ 20 mls/hr IVCONT .Q24H [facility] Last Admin: 05/28/21 07:20 Dose: 20 mls/hr Documented by: CEE Comments: BAG HUNG IN IR, TIME ON LABEL Alteplase, Recombinant 5 mg/ (Sodium Chloride) 500 mls @ 50 mls/hr IV .Q10H [facility] Stop: 05/28/21 16:44 Last Admin: 05/28/21 10:35 Dose: Not Given Documented by: HAYDEN Non-Admin Reason: Medication Discontinued Magnesium Hydroxide (Milk Of Magnesia 30 Ml Oral.Susp) 30 ml PO DAILY PRN PRN Reason: Constipation Melatonin (Melatonin 3 Mg Tablet) 6 mg PO BEDTIME PRN PRN Reason: Insomnia Last Admin: 05/25/21 23:16 Dose: 6 mg Documented by: NAYANA Morphine Sulfate (Morphine Sulfate 4 Mg/Ml Cartridge) 1 mg IVPUSH Q4H PRN; Protocol PRN Reason: Pain, Severe (Pain Scale 7-10) Last Admin: 05/26/21 18:02 Dose: 1 mg Documented by: MALORIE Oxycodone HCl (Oxycodone Hcl Immed Release 5 Mg Tablet) 5 mg PO Q4H PRN PRN Reason: Pain, Moderate (Pain Scale 4-6 Last Admin: 05/28/21 10:48 Dose: 5 mg Documented by: HAYDEN Pharmacy Consult (Consult Rx Perform Med Rec) 1 each MISCELLANE ONCE PRN PRN Reason: Consult order Senna (Sennosides 8.6 Mg Tablet) 17.2 mg PO BEDTIME PRN PRN Reason: Constipation Sodium Chloride (0.9 % Sodium Chloride Flush 3 Ml Syringe) 3 ml IVFLUSH QSHIFT [facility] Last Admin: 05/28/21 10:36 Dose: Not Given Documented by: HAYDEN Non-Admin Reason: IV Running Labs CBC & Chem 7: 05/28/21 05:22 05/27/21 05:47 Labs: Laboratory Results - last 24 hr 05/26/21 05/27/21 05/27/21 16:08 12:21 16:51 MCV MCH MCHC RDW Plt Count MPV Absolute Nucleated RBC Nucleated RBC % (auto) APTT 31.5 Fibrinogen > 700 H > 700 H LA PTT Screen 46 H LA Thrombin Time 28 H dRVV Screen 36 Lupus Anticoag Interp SEE NOTE Procalcitonin 05/27/21 05/28/21 05/28/21 20:30 00:33 05:22 MCV 89.2 MCH 29.8 MCHC 33.4 RDW 14.6 Plt Count 600 H MPV 8.8 L Absolute Nucleated RBC 0.000 Nucleated RBC % (auto) 0.0 APTT 30.7 Fibrinogen > 700 H > 700 H LA PTT Screen LA Thrombin Time dRVV Screen Lupus Anticoag Interp Procalcitonin 05/28/21 05/28/21 05/28/21 05:22 05:22 09:24 MCV MCH MCHC RDW Plt Count MPV Absolute Nucleated RBC Nucleated RBC % (auto) APTT 32.0 Fibrinogen > 700 H > 700 H LA PTT Screen LA Thrombin Time dRVV Screen Lupus Anticoag Interp Procalcitonin 0.08 Microbiology Microbiology Results: Microbiology 05/25/21 18:51 Blood Culture - Preliminary Blood - Venous No growth after 48 hours. 05/25/21 18:51 Blood Culture - Preliminary Blood - Venous No growth after 48 hours. Assessment and Plan (1) DVT (deep venous thrombosis): Status: Acute (2) Pulmonary embolism: Status: Acute (3) Pneumonia: Status: Acute Assessment and Plan: 65yo M with HTN, strong FHx of VTE [2 daughters] admitted for large R-sided PE + extensive RLE DVT 1. extensive DVT RLE from CFV to tibioperoneal trunk acute PE - s/p ultrasound-guided right common femoral access, inferior vena cavogram, insertion of right common femoral vein in to inferior vena cava thrombolysis catheter yesterday also received herpain, tpa , off alteplase + heparin - no signs of R heart strain on TTE - thrombophilia workup sent but interpret antigen/activity tests small right groin possble hemmatoma , no gross bleedin will start AC lovonox cautiously can be switched to eliquez or xarelto as per insurance upon discharge, d/w dr zuleta 2. RLL PNA/pleural effusion - continue ceftriaxone + doxycycline d#4, BCx NGTD, trend PCT, urinary antigens pending 3. HTN - hold diltiazem + losartan/HCTZ . VTE ppx off haprin drip , will plan to start AC Quality Stroke Does the patient have a stroke diagnosis?: No VTE Prior VTE?: Yes Approximate Date of Prior VTE: 05/25/21 VTE Risk Level:: Medical - moderate - high VTE Device Contraindication: Treatment Not Indicated VTE Drug Contraindication: N/A - Med Ordered
[2021-05-28] MEDS: Enoxaparin Sodium 100 MG/ML SYRINGE 85 MG SUBCUT (15:40)
[2021-05-28 16:34] LABS: Hematocrit 33.7 % (42-52); Hemoglobin 11.1 g/dl (14.0-18.0); Mean Corpuscular HGB Conc 32.9 g/dl (31.0-36.0); Mean Corpuscular Hemoglobin 29.4 pg (27.0-33.0); Mean Corpuscular Volume 89.2 fL (80-98); Mean Platelet Volume 8.5 fL (9.4-12.4); Platelet Count 561 X10*3/uL (160-400); Red Blood Count 3.78 X10*6/uL (4.60-5.80); Red Cell Distribution Width 14.5 % (11.0-16.0); White Blood Count 14.4 X10*3/uL (4.8-10.8)
[2021-05-28 16:41] LABS: INTERNATIONAL NORM RATIO 1.2 (0.9-1.1); Prothrombin Time 13.6 SEC (9.9-13.0)
[2021-05-28 16:44] LABS: Partial Thromboplastin Time 37.9 SEC (24.1-38.0)
[2021-05-28] MEDS: cefTRIAXone sodium 1 GM in 0.9 % Sodium Chloride 50 ML IV (17:49)
--- NOTE | 2021-05-28 19:22 | PC.NURSE ---
TRANSFERRED TO [facility] [place]. AFEBRILE. VSS. POSITIVE BILATERAL PEDAL PULSES WITH DOPPLAR. PRESSURE DRESSING TO RIGHT GROIN C/D/I. SWELLING CONTINUES TO BE MONITORED. STATES PAIN IN RIGHT GROIN, BUT DOES NOT WANT PAIN MEDICATION AT THIS TIME FOR IT.
[2021-05-29] VITALS (7 sets, daily range): BP systolic 125–143; BP diastolic 74–81; PULSE 75–99; RESP 16–20; TEMP 36.4–37.4; O2SAT 96–98
[2021-05-29] MEDS: Enoxaparin Sodium 100 MG/ML SYRINGE 85 MG SUBCUT ×2 (03:12→15:01)
[2021-05-29 06:54] LABS: Hematocrit 33.6 % (42-52); Hemoglobin 11.1 g/dl (14.0-18.0); Mean Corpuscular Hemoglobin 29.4 pg (27.0-33.0); Mean Corpuscular Volume 88.9 fL (80-98); Platelet Count 605 X10*3/uL (160-400); Red Blood Count 3.78 X10*6/uL (4.60-5.80); Red Cell Distribution Width 14.6 % (11.0-16.0); White Blood Count 15.1 X10*3/uL (4.8-10.8)
[2021-05-29 07:14] LABS: Anion Gap 10 (12-20); Blood Urea Nitrogen 10 mg/dL (9-16); Carbon Dioxide 28 mmol/L (22-29); Chloride 105 mmol/L (96-108); Estimated Glomerular Filt Rate > 60; Glucose Random 95 mg/dL (60-115); Potassium 4.4 mmol/L (3.3-5.1); Sodium 139 mmol/L (135-145)
[2021-05-29] MEDS: Doxycycline Hyclate 100 MG in 0.9 % Sodium Chloride 250 ML 166.67 MG IV ×2 (07:48→19:48)
[2021-05-29] MEDS: 0.9 % Sodium Chloride Flush 3 ML SYRINGE IVFLUSH ×3 (07:49→19:48)
[2021-05-29] MEDS: 0.9 % Sodium Chloride 1,000 ML 20 ML IVCONT (07:49)
[2021-05-29] MEDS: oxyCODONE HCl Immed Release 5 MG TABLET PO ×2 (12:17→21:08)
[2021-05-29 15:36] LABS: INTERNATIONAL NORM RATIO 1.2 (0.9-1.1); Prothrombin Time 14.1 SEC (9.9-13.0)
[2021-05-29] MEDS: cefTRIAXone sodium 1 GM in 0.9 % Sodium Chloride 50 ML IV (17:25)
--- NOTE | 2021-05-29 18:07 | P.PNIM_ITS ---
Subjective Subjective Date of Service: 05/29/21 Interval History: f/u on PE, DVT... right leg is still swollen and painful, no sob Review of Systems pain in the right leg no sob no fever Physical Exam Vital Signs: Vital Signs: Last Vital Signs Temp 98.6 F 05/29/21 15:00 Pulse 86 05/29/21 15:00 Resp 20 05/29/21 15:00 BP 136/77 05/29/21 15:00 Pulse Ox 98 05/29/21 15:00 Body Mass Index 28.9 General: AO X 3, no acute distress Resp: CTA bilateral CVS: S1,S2,RRR GI: +BS, NT, no distention Skin: No rash, marked swelling in thr right leg Neuro: motor grossly intact Psych: appropriate affect Objective Data Active Medications Acetaminophen (Acetaminophen 325 Mg Tablet) 650 mg PO Q6H PRN PRN Reason: Pain, Mild (Pain Scale 1-3) Last Admin: 05/27/21 09:09 Dose: 650 mg Documented by: NANCY Enoxaparin Sodium (Enoxaparin Sodium 100 Mg/Ml Syringe) 85 mg SUBCUT Q12H [facility] Last Admin: 05/29/21 15:01 Dose: 85 mg Documented by: MALORIE Ceftriaxone Sodium 1 gm/ (Sodium Chloride) 50 mls @ 100 mls/hr IV Q24H [facility] Last Infusion: 05/29/21 17:57 Dose: 0 mls/hr Documented by: MALORIE Doxycycline Hyclate 100 mg/ (Sodium Chloride) 250 mls @ 166.67 mls/hr IV Q12H [facility] Last Infusion: 05/29/21 10:45 Dose: 0 mls/hr Documented by: MALORIE Sodium Chloride (Ns) 1,000 mls @ 20 mls/hr IVCONT .Q24H [facility] Last Admin: 05/29/21 07:49 Dose: 20 mls/hr Documented by: MALORIE Magnesium Hydroxide (Milk Of Magnesia 30 Ml Oral.Susp) 30 ml PO DAILY PRN PRN Reason: Constipation Melatonin (Melatonin 3 Mg Tablet) 6 mg PO BEDTIME PRN PRN Reason: Insomnia Last Admin: 05/25/21 23:16 Dose: 6 mg Documented by: NAYANA Morphine Sulfate (Morphine Sulfate 4 Mg/Ml Cartridge) 1 mg IVPUSH Q4H PRN; Protocol PRN Reason: Pain, Severe (Pain Scale 7-10) Last Admin: 05/26/21 18:02 Dose: 1 mg Documented by: MALORIE Oxycodone HCl (Oxycodone Hcl Immed Release 5 Mg Tablet) 5 mg PO Q4H PRN PRN Reason: Pain, Moderate (Pain Scale 4-6 Last Admin: 05/29/21 12:17 Dose: 5 mg Documented by: MALORIE Pharmacy Consult (Consult Rx Perform Med Rec) 1 each MISCELLANE ONCE PRN PRN Reason: Consult order Senna (Sennosides 8.6 Mg Tablet) 17.2 mg PO BEDTIME PRN PRN Reason: Constipation Sodium Chloride (0.9 % Sodium Chloride Flush 3 Ml Syringe) 3 ml IVFLUSH QSHIFT [facility] Last Admin: 05/29/21 15:02 Dose: 3 ml Documented by: MALORIE Labs CBC & Chem 7: 05/29/21 05:57 05/29/21 05:57 Labs: Laboratory Results - last 24 hr 05/29/21 05/29/21 05/29/21 05:57 05:57 15:09 MCV 88.9 MCH 29.4 MCHC 33.0 RDW 14.6 Plt Count 605 H MPV 9.0 L Absolute Nucleated RBC 0.000 Nucleated RBC % (auto) 0.0 PT 14.1 H INR 1.2 H Anion Gap 10 L Estim Creat Clear Calc 93.0 Estimated GFR > 60 Random Glucose 95 Calcium 9.0 Assessment and Plan (1) DVT (deep venous thrombosis): Status: Acute (2) Pulmonary embolism: Status: Acute (3) Pneumonia: Status: Acute Assessment and Plan: 65yo M with HTN, strong FHx of VTE [2 daughters] admitted for large R-sided PE + extensive RLE DVT 1. extensive DVT RLE from CFV to tibioperoneal trunk acute PE - s/p ultrasound-guided right common femoral access, inferior vena cavogram, insertion of right common femoral vein in to inferior vena cava thrombolysis catheter yesterday also received herpain, tpa , off alteplase + heparin - no signs of R heart strain on TTE - thrombophilia workup sent but interpret antigen/activity tests small right groin possble hemmatoma , no gross bleedin will start AC lovonox cautiously change Lovenox to Eliquis tomorrow morning 2. RLL PNA/pleural effusion - continue ceftriaxone + doxycycline d#5, BCx negative. change to PO Doxyc and Ceftin 3. HTN - hold diltiazem + losartan/HCTZ . VTE ppx Lovenox home tomorrow Quality Stroke Does the patient have a stroke diagnosis?: No VTE Prior VTE?: Yes Approximate Date of Prior VTE: 05/25/21 VTE Risk Level:: Medical - moderate - high VTE Device Contraindication: Treatment Not Indicated VTE Drug Contraindication: N/A - Med Ordered
[2021-05-29] MEDS: Morphine Sulfate 4 MG/ML CARTRIDGE 1 MG IVPUSH (22:25)
[2021-05-29 22:42] LABS: Protein C Activity 124 % (70-180); Protein S Activity rflx Tot&Fr 51 % (70-150)
[2021-05-30 03:39] VITALS: BP 135/75; PULSE 91; RESP 18; TEMP 37.2; O2SAT 96
[2021-05-30] MEDS: Apixaban 5 MG TABLET 10 MG PO (05:41)
[2021-05-30 06:50] LABS: Hematocrit 33.2 % (42-52); Hemoglobin 11.2 g/dl (14.0-18.0); Mean Corpuscular HGB Conc 33.7 g/dl (31.0-36.0); Mean Corpuscular Hemoglobin 29.7 pg (27.0-33.0); Mean Corpuscular Volume 88.1 fL (80-98); Mean Platelet Volume 8.7 fL (9.4-12.4); Platelet Count 605 X10*3/uL (160-400); Red Blood Count 3.77 X10*6/uL (4.60-5.80); Red Cell Distribution Width 14.3 % (11.0-16.0); White Blood Count 14.6 X10*3/uL (4.8-10.8)
[2021-05-30 07:58] VITALS: BP 153/86; PULSE 97; RESP 20; TEMP 37.6; O2SAT 96
[2021-05-30] MEDS: 0.9 % Sodium Chloride Flush 3 ML SYRINGE IVFLUSH (08:01)
[2021-05-30] MEDS: Doxycycline Hyclate 100 MG in 0.9 % Sodium Chloride 250 ML 166.67 MG IV (08:01)
[2021-05-30] MEDS: oxyCODONE HCl Immed Release 5 MG TABLET PO (09:38)
[2021-05-30 10:32] LABS: Strep Pneumo Ag urine Not Detected (Not Detected)
[2021-05-30 11:48] VITALS: BP 137/87; PULSE 99; RESP 20; TEMP 36.9; O2SAT 96
[2021-05-30 12:00] VITALS: BP 145/83; PULSE 77; RESP 20; TEMP 36.2; O2SAT 95
--- NOTE | 2021-05-30 12:43 | P.DS_ITS ---
DS: Providers Provider Date of Service: 05/30/21 Date of admission: 05/25/21 19:37 Primary care physician: Shabbir Crane MD Consults: 05/25/21 19:50 Consult to Hematology / Oncology Routine Consulting Provider: Alejandro Riley Reason for consultation: PE; teresa also has PE 05/25/21 21:29 Consult to Vascular Surgery Routine Consulting Provider: Rashaad Martínez Reason for consultation: Extensive RLE DVT; PE DS: Diagnosis Discharge Diagnosis (1) DVT (deep venous thrombosis): Status: Acute (2) Pulmonary embolism: Status: Acute (3) Pneumonia: Status: Acute DS: Summary Hospital Course Hospital Course: Chief Complaint: Abdominal pain 65-year-old male with a past medical history of hypertension presented to the hospital with a chief complaint of abdominal pain. Patient reports that his the past 2-3 weeks he has been having abdominal pain located in the epigastrium and right upper quadrant associated with nausea and vomiting initially; worsens with deep inspiration.? Also causing shortness of breath.? Denies any fever chills cough or sputum production.? Denies any urinary symptoms. Patient mentions that he had traveled from [facility] about 2-3 weeks ago next reports his daughters had diagnosed with pulmonary embolism. Denies any headaches palpitations lightheadedness or dizziness. Denies any trauma. Patient complains of right lower extremity pain the past 3 weeks.? Denies any numbness or tingling. Spoke to the patient's daughter at bedside-who reported that she had pulmonary embolism in the past and attributes to her use of oral contraceptive pills. Review of all other systems is negative except mentioned above ER course: Per ER team patient's EKG was nonischemic; abdominal exam was benign; abdominal ultrasound showed no acute findings; CT chest showed evidence of pulmonary embolism in the right main pulmonary artery distally extending into the right middle lobe; also noticed evidence of pneumonia.? Given antibiotics and Lovenox.? Admitted for further management. Patient was admite to the floor and treated with IV heparin for and Hospital course including ICU course:. The patient is a 65-year-old male with a past medical history of hypertension.? He recently returned from driving back and forth to [place]. The patient presented to the hospital on May 25 complaining of abdominal pain times 2-3 weeks associated with nausea and vomiting.? In the ED, vital signs were unremarkable.? Breathing easy with normal oxygenation.? Exam was o therwise remarkable for some right upper quadrant abdominal tenderness, without guarding or rebound. Patient also complained of right lower extremity pain the past 3 weeks. ?Has family history of DVT/PE.? Lab evaluation was notable for mild leukocytosis and thrombocytosis.? BUN/creatinine were 17/1.0.? Mildly increased ALT and alk-phos.? Albumin was 3.7, lipase normal.? Abdominal ultrasound was unremarkable. CTPA showed large PE in distal right main PA chest showed evidence of pulmonary embolism in the right main pulmonary artery.? Lung parenchyma showed a broad almost wedge-shaped consolidation in the lateral right lower lobe, more suggestive of a pulmonary infarction than a pneumonia.? Venous duplex scan showed extensive DVT throughout the right lower extremity. The patient was anticoagulated and given antibiotics and admitted to Medicine.? He was seen yesterday in consultation by Dr. Martínez because of the extensive right lower extremity DVT he was scheduled for right lower extremity venous angiogram with insertion of thrombolysis catheter.? He has been hemodynamically stable, breathing easy, with normal oxygenation throughout his entire hospital stay. On 05/27, he underwent inferior venacavogram and insertion of an IVC thrombolysis catheter via the right femoral vein in IR by Dr. Martínez. ?Venacavogram demonstrated that the IVC had minimal thrombus, but there was significant thrombus from the iliacs down, with no flow down below.? tPA was started at 0.5u g/hr. Thrombolysis catheter was subsequently placed this morning and given 24 hours of tPA and then transfer to the floor where he was initiated Lovenox for 48 hours and is now switched to Eliquis 10 mg twice daily for 7 days, then 5 bid bid thereafter. IMPRESSION:? 65-year-old man with family history of VTEs presented with extensive DVT and right mainstem PE after driving up from [place] s/p [facility], also noted to have pneumonia and that has been treated with Doxycyline and Ceftriaxone, culture negative and will be discharge with Ceftin for total of 7 days. He is presently comfortable, there is no hypoxia, right leg remains very swollen but able to ambulate Time Spent with Patient Time attestation: Total time spent providing and/or coordinating discharge services: Discharge coordination time: Greater than 30 minutes Quality: Stroke Does the patient have a stroke diagnosis?: No Physical Exam Vital Signs: Vital Signs: Last Vital Signs Temp 97.2 F 05/30/21 12:00 Pulse 77 05/30/21 12:00 Resp 20 05/30/21 12:00 BP 145/83 H 05/30/21 12:00 Pulse Ox 95 05/30/21 12:00 Body Mass Index 28.9 DS: Data Data Completed and Pending Labs on day of discharge: Laboratory Results - last 24 hr 05/26/21 05/26/21 05/29/21 16:08 Unknown 15:09 WBC RBC Hgb Hct MCV MCH MCHC RDW Plt Count MPV Absolute Nucleated RBC Nucleated RBC % (auto) PT 14.1 H INR 1.2 H Protein C Activity 124 Protein S Activity 51 L Ur Strep pneumoniae Ag Not Detected 05/30/21 06:05 WBC 14.6 H RBC 3.77 L Hgb 11.2 L Hct 33.2 L MCV 88.1 MCH 29.7 MCHC 33.7 RDW 14.3 Plt Count 605 H MPV 8.7 L Absolute Nucleated RBC 0.000 Nucleated RBC % (auto) 0.0 PT INR Protein C Activity Protein S Activity Ur Strep pneumoniae Ag Preliminary micro results at discharge 05/25/21 18:51 Blood Culture - Preliminary Blood - Venous No growth after 48 hours. 05/25/21 18:51 Blood Culture - Preliminary Blood - Venous No growth after 48 hours. Discharge Plan Discharge Anticipated Discharge Date/Time: 05/30/21 12:30 Patient Disposition: Home Health Service Discharge Diagnosis: DVT, Pulmonary embolism and pneumonia Referrals: Shabbir Crane MD [Primary Care Provider] - 1 Week Rashaad Martínez MD [Physician] - 2 Weeks Alejandro Riley MD [Physician] - 1 Week Discharge Medications: New Eliquis DVT-PE Treat 30D Start 5 mg (74 tabs) tablets,dose pack See Rx Instructions .ROUTE .COMPLEX Qty: 74 RF: 0 cefuroxime axetil 500 mg tablet 500 mg PO BID 3 Days Qty: 6 RF: 0 Continued diltiazem HCl 240 mg capsule,extended release 24hr 1 cap PO DAILY RF: 0 potassium chloride 10 mEq tablet extended release 1 tab PO DAILY RF: 0 losartan-hydrochlorothiazide 100-25 mg tablet 1 tab PO DAILY RF: 0 Discharge Orders: Discharge Order (Routine); Ordered 05/30/21 Ordered By: Neil Mock Diet: advance to usual diet Activity on Discharge: No Running or jogging Stand Alone Forms: Patient Portal Discharge page Activity Restrictions/Additional Instructions: Skin glue was used and you may shower as early as tomorrow. Take it easy today and you may ambulate around the house. Within 24 hours you can resume normal activity you may climb a flight of stairs as tolerated Do not lift anything heavier than a gallon of milk for [address] Martínez in follow-up in approximately 2 weeks time. you should already have an appointment if not please call my office at [phone] Please see above for any change in medications - and follow anticoagulation me ds If you notice excessive bleeding from the groin please immediately call my office or return to the emergency room. Care Plan Goals: Full recovery from PE, DVT and pneumonia Health Concerns: DVT, PE and pneumonia Plan of Treatment: Take Eliquis as directed--2 tabs (10 mg) twice daily until Jun 05, then 1 tab (5mg) twice daily starting May 12 Take Ceftin 500 mg twice daily for pneumonia Call [phone] or come to emergency if you have shortness, increasing chest pain Follow up with your doctor in a week Follow up with Dr. Riley's office in a week Assessment: As abovee
--- NOTE | 2021-05-30 13:24 | P.F2F_ITS ---
Service Date Service Date: 05/30/21 Reasons for Services Reason for penitentiary: CV/CP assess and/or care Reason for physical therapy: home safety and mobility Homebound: Leaving the home is medically contraindicated at this time without the asist of a device and/or another person due th the listed conditions above and below. Homebound supporting statement: Homebound due to extensive DVT, causing pain and difficulty ambulating and therefore needs the assistance of another person Certification: Based on the above findings, I certify that this patient is confined to the home and needs intermittent penitentiary care, physical therapy and/or speech therapy, or continues to need occupational therapy. The patient is under my care, and I have initiated the establishment of the plan of care. The patient will be followed by a physician who will periodically review the plan of care.
--- NOTE | 2021-05-30 13:49 | MHC.CM.PN ---
PT CLEARED FOR DC HOME TODAY WITH [facility]. REFERRAL SENT TO [facility]. PER DC ORDERS, PT WILL GO ON ELIQUIS. 30 COUPON PROVIDED ALONG WITH INSTRUCTIONS FOR USE.
[2021-05-31 10:27] LABS: Legionella Ag Urine Not Detected (Not Detected)
[2021-06-02 13:26] LABS: Protein S Free Antigen 65 % normal (57-171); Protein S Total (Antigenic) 177 % normal (70-140)
== END 2021-05-30 15:24 | disposition home health service (06) | DRG 197 ==
LOC: HO.ED 19:38 → HO.IMC 20:30 → HO.ICU 05-27 08:07 → HO.IMC 05-28 12:44
PROVIDERS: Family Medicine; Internal Medicine; Physician Assistant; Surgery Vascular Surgery; Admitting Provider Hospitalist; Emergency Provider Internal Medicine; PCP Family Medicine; Visit Provider Internal Medicine
DX: I82.411 Acute embolism and thrombosis of right femoral vein (principal); I26.99 Other pulmonary embolism without acute cor pulmonale; J18.9 Pneumonia, unspecified organism; J91.8 Pleural effusion in other conditions classified elsewhere; I10 Essential (primary) hypertension; Z20.822 Contact with and (suspected) exposure to COVID-19; Z79.899 Other long term (current) drug therapy; Z87.891 Personal history of nicotine dependence
CPT/HCPCS: 36415; 37191; 37212; 37214; 71045; 71275; 76705; 76937; 80048; 80053; 80076; 81001; 81240; 81241; 83605; 83690; 83735; 83880; 84145; 84484; 85025; 85027; 85300; 85302; 85303; 85305; 85306; 85384; 85597; 85610; 85613; 85730; 86140; 86147; 87040; 87449; 87635; 87899; 93306; 93970; 96361; 96365; 96366; 96367; 96372; 96375; 99152; 99153; 99285; C1751; C1769; C1880; C1887; C1894; J0696; J1650; J1885; J2270; J2405; J2997; J3010; Q9967

== ENCOUNTER → 2021-06-07 10:04 | Outpatient (BNV) | payer OTHER, SELFPAY | PROVIDERS: PCP Family Medicine; Referring Provider Internal Medicine; Visit Provider Internal Medicine Medical Oncology | DX: I26.99 Other pulmonary embolism without acute cor pulmonale (principal) | CPT/HCPCS: 99204; 99213; 99214 ==

== ENCOUNTER → 2021-06-08 09:00 | Outpatient (BNVA) | payer OTHER, SELFPAY | PROVIDERS: PCP Family Medicine; Visit Provider Surgery Vascular Surgery | DX: I82.401 Acute embolism and thrombosis of unspecified deep veins of right lower extremity (principal) | CPT/HCPCS: 99212 ==

== ENCOUNTER 2021-07-14 11:44 | Outpatient (REF) | payer OTHER, SELFPAY ==
--- NOTE | ~2021-07-14 | XR_ITS ---
EXAMINATION: XR CHEST CLINICAL INFORMATION: History of pulmonary embolism COMPARISON: CT dated 05/25/2021 TECHNIQUE: 2 views of the chest were obtained. FINDINGS: Faint streaky opacity at the right lung base laterally. Left lung clear. No pleural effusion or pneumothorax. Normal heart size and pulmonary vascularity. Aorta is tortuous and atherosclerotic. No acute or suspicious osseous abnormalities. XR/XR chest 2V IMPRESSION: Improved aeration at the right lung base laterally represents evolution of the previously seen pulmonary infectious/ischemic pneumonitis, likely with a degree of evolving pleural-parenchymal scarring
== END 2021-07-14 11:45 | disposition home or self-care (01) ==
LOC: HO.XRAY 11:44
PROVIDERS: PCP Family Medicine; Visit Provider Family Medicine
DX: Z86.711 Personal history of pulmonary embolism (principal)
CPT/HCPCS: 71046

== ENCOUNTER 2021-09-06 12:56 | Outpatient (REF) | payer OTHER, SELFPAY ==
--- NOTE | ~2021-09-06 | US_ITS ---
EXAMINATION: US VENOUS ULTRASOUND WITH DOPPLER LOWER EXTREMITY, RIGHT CLINICAL INFORMATION: Acute PE. COMPARISON: 05/27/2021 TECHNIQUE: Ultrasound of the deep veins is performed from the hip to the calf with compression sonography and color and pulse Doppler assessment. Spectral analysis with color-flow imaging is performed. FINDINGS: Redemonstration of thrombosis, echogenic clots found in the right common femoral, greater saphenous, femoral proximal mid thigh popliteal and peroneal veins. US/US venous duplex LE RT IMPRESSION: Positive DVT. Redemonstration of chronic deep venous thrombosis in the right common femoral through peroneal veins. Patient is reported to be on blood thinner.
== END 2021-09-06 12:57 | disposition home or self-care (01) ==
LOC: HO.US 12:56
PROVIDERS: PCP Family Medicine; Visit Provider Surgery Vascular Surgery
DX: I82.401 Acute embolism and thrombosis of unspecified deep veins of right lower extremity (principal)
CPT/HCPCS: 93971

== ENCOUNTER → 2021-09-09 12:53 | Outpatient (BNVA) | payer OTHER, SELFPAY | PROVIDERS: PCP Family Medicine; Visit Provider Surgery Vascular Surgery | DX: I82.401 Acute embolism and thrombosis of unspecified deep veins of right lower extremity (principal) | CPT/HCPCS: 99212 ==

== ENCOUNTER 2023-03-16 15:55 | Outpatient (REF) | payer OTHER, SELFPAY ==
--- NOTE | ~2023-03-16 | US_ITS ---
EXAMINATION: US VENOUS ULTRASOUND WITH DOPPLER LOWER EXTREMITY, RIGHT CLINICAL INFORMATION: History of DVT in 2020 with patient being on anticoagulant. COMPARISON: September 06, 2021 and May 25, 2021 TECHNIQUE: Ultrasound of the deep veins is performed from the hip to the calf with compression sonography and color and pulse Doppler assessment. Spectral analysis with color-flow imaging is performed. FINDINGS: There is some diminished compressibility with some residual hypoechoic and heterogeneous material and synechiae identified within the common femoral vein through the distal femoral vein and within posterior tibial vein posterior branch. No definite occlusive acute deep venous thrombosis is appreciated. No distention with hypoechoic material is identified. There is no significant popliteal fossa cyst. US/US venous duplex LE RT IMPRESSION: No acute DVT demonstrated in the right lower extremity. Persistent changes of chronic deep venous thrombosis of the right lower extremity.
== END 2023-03-16 15:56 | disposition home or self-care (01) ==
LOC: HO.US 15:55
PROVIDERS: PCP Family Medicine; Visit Provider Internal Medicine Medical Oncology
DX: I82.501 Chronic embolism and thrombosis of unspecified deep veins of right lower extremity (principal); Z79.01 Long term (current) use of anticoagulants
CPT/HCPCS: 93971

== ENCOUNTER 2024-02-26 15:07 | Outpatient (REF) | payer OTHER, SELFPAY ==
[2024-02-26 15:35] LABS: Basophils Absolute Auto 0.1 X10*3/uL (0.0-0.2); Basophils Percent Auto 0.7 % (0-2); Eosinophils Absolute Auto 0.1 X10*3/uL (0.0-0.4); Hemoglobin 16.5 g/dl (14.0-18.0); Imm Gran Abs Auto 0.03 X10*3/uL (0.00-0.03); Imm Gran Pct Auto 0.4 % (0.0-0.4); Lymphocytes Absolute Auto 2.7 X10*3/uL (1.2-4.9); Lymphocytes Percent Auto 38.6 % (20-40); MANUAL DIFF FLAG NO; Mean Corpuscular HGB Conc 34.4 g/dl (31.0-36.0); Mean Corpuscular Hemoglobin 30.8 pg (27.0-33.0); Mean Corpuscular Volume 89.6 fL (80.0-98.0); Mean Platelet Volume 8.5 fL (9.4-12.4); Monocytes Absolute Auto 0.8 X10*3/uL (0.1-1.2); Monocytes Percent Auto 10.9 % (2-11); Neutrophils Absolute Auto 3.4 x10*3/uL (2.0-8.3); Neutrophils Percent Auto 48.4 % (45-73); Platelet Count 318 X10*3/uL (160-400); Red Blood Count 5.36 X10*6/uL (4.60-5.80); Red Cell Distribution Width 13.5 % (11.0-16.0); White Blood Count 7.1 X10*3/uL (4.8-10.8)
[2024-02-26 15:43] LABS: D Dimer High Sensitivity < 150 NG/ML
[2024-02-26 16:34] LABS: Alanine Aminotransferase 18 U/L (0-40); Albumin Level 4.1 g/dL (3.5-5.0); Alkaline Phosphatase 86 U/L (39-117); Anion Gap 14 (12-20); Aspartate Amino Transferase 22 U/L (5-37); Bilirubin Total 0.6 mg/dL (0.0-1.0); Blood Urea Nitrogen 16 mg/dL (9-16); Calcium 9.7 mg/dL (8.4-10.2); Carbon Dioxide 27 mmol/L (22-29); Chloride 102 mmol/L (96-108); Estimated Glomerular Filt Rate 51; Glucose Random 92 mg/dL (60-115); Potassium 3.1 mmol/L (3.3-5.1); Sodium 140 mmol/L (135-145); Total Protein 7.4 g/dL (6.5-8.0)
== END 2024-02-26 15:08 | disposition home or self-care (01) ==
LOC: HO.LAB 15:07
PROVIDERS: Visit Provider Internal Medicine Medical Oncology
DX: I26.99 Other pulmonary embolism without acute cor pulmonale (principal)
CPT/HCPCS: 36415; 80053; 85025; 85379

== ENCOUNTER 2024-03-18 14:36 | Outpatient (REF) | payer OTHER, SELFPAY ==
[2024-03-18 15:40] LABS: Baso%MD 0.7 %; Eos%MD 0.7 %; Hematocrit 48.2 % (42.0-52.0); Hemoglobin 16.6 g/dl (14.0-18.0); IG%MD 0.4 %; Lymph%MD 31.9 %; Mean Corpuscular HGB Conc 34.4 g/dl (31.0-36.0); Mean Corpuscular Hemoglobin 30.8 pg (27.0-33.0); Mean Corpuscular Volume 89.4 fL (80.0-98.0); Mean Platelet Volume 9.4 fL (9.4-12.4); Mono%MD 10.3 %; Platelet Count 338 X10*3/uL (160-400); Red Blood Count 5.39 X10*6/uL (4.60-5.80); Red Cell Distribution Width 13.3 % (11.0-16.0); White Blood Count 7.3 X10*3/uL (4.8-10.8)
[2024-03-18 16:04] LABS: D Dimer High Sensitivity < 150 NG/ML
[2024-03-18 16:08] LABS: Band Neutrophils Percent 0 % (3-5); Eosinophils Absolute Manual 0.1 X10*3/uL (0.0-0.4); Eosinophils Percent Manual 1 % (0-4); Lymphocytes Absolute Manual 2.7 X10*3/uL (1.2-4.9); Lymphocytes Percent Manual 37 % (20-40); Monocytes Absolute Manual 0.6 X10*3/uL (0.1-1.2); Monocytes Percent Manual 8 % (2-11); Neutrophils Absolute Manual 3.9 X10*3/uL (2.0-8.3); Neutrophils Percent Manual 54 % (45-73)
[2024-03-18 16:09] LABS: Platelet Estimate NORMAL (NORMAL); Platelet Morphology Comment NORMAL; RBC Morphology NORMAL
[2024-03-18 16:17] LABS: Alanine Aminotransferase 19 U/L (0-40); Albumin Level 4.3 g/dL (3.5-5.0); Alkaline Phosphatase 90 U/L (39-117); Anion Gap 13 (12-20); Aspartate Amino Transferase 22 U/L (5-37); Bilirubin Total 0.8 mg/dL (0.0-1.0); Blood Urea Nitrogen 14 mg/dL (9-16); Carbon Dioxide 30 mmol/L (22-29); Chloride 101 mmol/L (96-108); Estimated Glomerular Filt Rate 57; Glucose Random 103 mg/dL (60-115); Iron 135 mcg/dL (45-160); Percent Iron Saturation 45 % (15-50); Sodium 141 mmol/L (135-145); Total Iron Binding Capacity 299 mcg/dL (228-428); Total Protein 7.8 g/dL (6.5-8.0); Unsaturated Iron Binding 164 ug/dL
== END 2024-03-18 14:37 | disposition home or self-care (01) ==
LOC: HO.LAB 14:36
PROVIDERS: Internal Medicine Medical Oncology; PCP Family Medicine; Visit Provider Internal Medicine
DX: I26.99 Other pulmonary embolism without acute cor pulmonale (principal); I12.9 Hypertensive chronic kidney disease with stage 1 through stage 4 chronic kidney disease, or unspecified chronic kidney disease; N18.9 Chronic kidney disease, unspecified; M81.0 Age-related osteoporosis without current pathological fracture
CPT/HCPCS: 36415; 80053; 83540; 85007; 85027; 85379

== ENCOUNTER 2025-06-05 13:57 | Outpatient (AMB) | payer MEDICARE, SELFPAY ==
--- NOTE | 2025-06-05 14:01 | A.OFFPC_ITS ---
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 He has a history of essential hypertension and venous thromboembolism. The hypertension has been managed with several medications, specifically diltiazem 360 mg daily, losartan 120 mg with an additional 20 mg, and losartan hydrochlorothiazide 125 mg once daily. The onset and duration of hypertension were not specified, but the me dications indicate a long-standing issue. He also has a history of venous thromboembolism, for which he has been placed on Eliquis (apixaban) as a preventive measure. Additionally, an IVC filter was inserted to further protect against clot complications. There is no mention of recent venous thromboembolism episodes or complications associated with this condition. His family history further indicates a propensity for cardiovascular issues, with a mother who succumbed to a heart attack, lending additional context to his cardiovascular risks. Throughout the conversation, there are no new symptoms or complications reported, such as chest pain, shortness of breath, headaches, or swelling, indicating stable situations. His medication adherence is confirmed, and his blood pressure remains well-controlled with current therapy. His lifestyle includes being very active, contrary to increased risks associated with sedentary behaviors in individuals with venous thromboembolism, and he is advised to stay active, particularly when traveling long distances. Medical History: - Essential hypertension - History of venous thromboembolism - IVC filter placement Surgical History: - IVC filter placement - Thrombectomy Medications: - Diltiazem 360 mg once daily for hypert ension - Losartan 120 mg and additional 20 mg f or hypertension - Losartan hydrochlorothiazide 125 mg on ce daily for hypertension - Eliquis (apixaban) for history of veno us thromboembolism Family History: - Mother of a heart attack - Brother had diabetes - Another brother of lung cancer an d was a smoker Social: - Former tobacco user, quit in 1979 - Consumes alcohol 2-3 times a week, typ ically 3-4 drinks each time - Does not drink daily; abstains from ex cessive use in recent months - Uses marijuana - Retired, previously worked at a [employer] for 43 years - Resides in [place] and reports a [employer] living environment - Very active lifestyle reported [facility] Medical History (Updated 06/05/25 @ 14:23 by Ramiro Milligan MD) Factor 5 Leiden mutation, heterozygous Hypertension Surgical History (Updated 06/05/25 @ 14:22 by Ramiro Milligan MD) S/P IVC filter History of vasectomy Family History Brother Lung cancer Diabetes Father Mother Heart attack Social History Household Members: None Household Members Other:: rents a room to someone Housing: House Are you a primary resident care technician to a significant other at home: No Do you presently have visiting nurse or other home services: No Alcohol intake: never Patient Tobacco Use Status: Former Tobacco user Tobacco use type: Cigarette e-Cigarette/Vaping Use: Currently Using Substance Use Type: Marijuana service: Yes Current occupational status: unemployed and retired Questionnaire PHQ-9 Over the last 2 weeks, how often have you been bothered by any of the following problems? 1. Little interest or pleasure in doing things: not at all 2. Feeling down, depressed, or hopeless: not at all 3. Trouble falling or staying asleep, or sleeping too much: not at all 4. Feeling tired or having little energy: not at all 5. Poor appetite or overeating: not at all 6. Feeling bad about yourself - or that you are a failure or have let yourself or your family down: not at all 7. Trouble concentrating on things, such as reading the newspaper or watching television: not at all 8. Moving or speaking so slowly that other people could have noticed. Or the opposite - being so fidgety or restless that you have been moving around a lot more than usual: not at all 9. Thoughts that you would be better off or of hurting yourself in some way: not at all Total score: 0 Depression Screening Interpretation: Negative Depression Screening Done: Yes 34767 - PHQ-9 Billing: Yes Source: Developed by Drs. Sesar Coelho, Morelia Murray, Vishal Watson and colleagues, with an educational kamla from [employer]. Thrive Questionnaire Date Thrive assessed: 06/05/25 I am a: Patient What is your living situation today?: I have a steady place to live Within the past 12 months, did the food you bought not last and you didn't have the money to get more?: Never true Within the past 12 months, did you worry whether your food would run out before you got money to buy more?: Never true Do you have trouble paying for medicines?: No Do you have trouble getting transportation to medical appointments?: No Do you have trouble paying your heating and electricity bill?: No Do you have trouble taking care of your child, family member or friend?: No Do you have trouble with day-to-day activities such as bathing, preparing meals, shopping, managing finances, etc.?: No Are you currently unemployed and looking for a job?: No Are you interested in more education?: No THRIVE Score: 0 AUDIT C Alcohol Use Questionnaire (AUDIT-C) 1. How often do you have a drink containing alcohol?: 2-3 times a week 2. How many drinks containing alcohol do you have on a typical day when you are drinking?: 3 or 4 3. How often do you have six or more drinks on one occasion?: Never Total Score: 4 Score Reviewed/Action Taken: Yes BLU-7 AMB Questionnaire BLU-7 Date BLU - 7 assessed: 06/05/25 Feeling nervous, anxious, or on edge: 0 = Not at all Not being able to stop or control worryin = Not at all Worrying too much about different things: 0 = Not at all Trouble relaxin = Not at all Being so restless that it is hard to sit still: 0 = Not at all Becoming easily annoyed or irritable: 0 = Not at all Feeling afraid as if something awful might happen: 0 = Not at all Total BLU-7 score (0-4 normal; 5-9 mild; 10-14 moderate; 15-21 severe): 0 Source: Developed by Drs. Sesar Coelho, Morelia Murray, Vishal Watson and colleagues, with an educational kamla from [employer]. BLU-7 Assessment Billing BLU-7 Assessment Tool: BLU-7 Assessment 06183 Review of Systems Const Details: - Cardiovascular: Denies chest pain, denies leg swelling - Respiratory: Denies shortness of breath - Neurological: Denies headaches - Gastrointestinal: Denies nausea, denies vomiting, reports normal bowel move ments All systems reviewed & are unremarkable except as reviewed in HPI and above Physical exam (Primary Care) Vital Signs: Last Vital Signs Temp 98.3 F 06/05/25 14:08 Pulse 91 06/05/25 14:08 Resp 17 06/05/25 14:08 BP 136/72 06/05/25 14:08 Pulse Ox 96 06/05/25 14:08 Oxygen Delivery Method Room Air 06/05/25 14:08 BMI result Body Mass Index 30.9 Tobacco/Smoking Status: Tobacco use Status Tobacco use date assessed 06/05/25 06/05/25 14:11 Patient Tobacco Use Status Former Tobacco user 06/05/25 14:11 Tobacco use type Cigarette 06/05/25 14:11 e-Cigarette/Vaping Use Currently Using 06/05/25 14:11 Depression Screening Interpretation: Negative Const Other: General: Alert and oriented, Well nourished, No acute distress. Eye: Pupils are equal, round and reactive to light, Intact accommodation, Extraocular movements are intact, Normal conjunctiva, Vision unchanged. HENT: Normocephalic, Atraumatic, Tympanic membranes are clear, Normal hearing, Oral mucosa is moist, No pharyngeal erythema, Ear canals patent. Respiratory: Lungs CTA bilaterally, No wheeze, Respirations are non-labored. Cardiovascular: Regular rate, Regular rhythm, S1 auscultated, S2 auscultated, No murmur, Good pulses equal in all extremities, Normal peripheral perfusion, No edema. Gastrointestinal: Soft, Non-tender, Non-distended, Normal bowel sounds, No organomegaly. Musculoskeletal: Normal range of motion, Normal strength, No tenderness, No swelling, No deformity, Normal gait. Integumentary: Warm, Dry, [place], Intact. Neurologic: Alert, Oriented, Normal sensory, Normal motor function, No focal defects, Cranial Nerves II-XII are grossly intact, Normal deep tendon reflexes. Psychiatric: Cooperative, Appropriate mood & affect, Normal judgment. Coding Level of Care Code New Pt Level 4 (28486) Complex EM visit Add On G2211 Diagnoses Hypertension, unspecified type I10 Hypertension type: unspecified Factor 5 Leiden mutation, heterozygous D68.51 S/P IVC filter Z95.828 Pulmonary embolism I26.99 Acute cor pulmonale presence: unspecified Chronicity: acute Pulmonary embolism type: unspecified DVT (deep venous thrombosis) I82.401 Affected thrombotic vein of extremity: unspecified vein of extremity Chronicity: unspecified DVT location: lower extremity Laterality: right Additional Codes PHQ-9 - 25658 - PHQ-9 Billing: Yes ([id number]) BLU-7 Assessment Billing - BLU-7 Assessment Tool: BLU-7 Assessment 47038 ([id number]) Assessment & Plan Assessment & Plan (1) Hypertension: Comment: - Continue current medications (diltiazem, losartan, losartan hydrochlorothiazide) - Pressures well controlled in clinic today - Patient advised to reduce salt intake to further control blood pressure - Plan to keep close monitoring of blood pressure levels to avoid adding additional medications Code(s): I10 - Essential (primary) hypertension Category: Medical Qualifiers: Hypertension type: unspecified Qualified Code(s): I10 - Essential (primary) hypertension (2) Factor 5 Leiden mutation, heterozygous: Comment: - Diagnosed after presenting with PE & DVTS and subsequently underwent hypercoag workup which was positive for Factor 5 Leiden Mutation and will remain on Eliquis per hematology. Also has IVC filter in place. Code(s): D68.51 - Activated protein C resistance Category: Medical (3) S/P IVC filter: Comment: Please by vascular surgery during thrombectomy for DVT with plans to given given factor 5 laden mutation Code(s): Z95.828 - Presence of other vascular implants and grafts Category: Surgical (4) Pulmonary embolism: Comment: Diagnosed in 2020 and subsequently would on treatment with PE given factor 5 Code(s): I26.99 - Other pulmonary embolism without acute cor pulmonale Category: Medical Qualifiers: Acute cor pulmonale presence: unspecified Chronicity: acute Pulmonary embolism type: unspecified Qualified Code(s): I26.99 - Other pulmonary embolism without acute cor pulmonale (5) DVT (deep venous thrombosis): Comment: Diagnosed in 2020 in combination with PE and underwent thrombectomy Code(s): I82.409 - Acute embolism and thrombosis of unspecified deep veins of unspecified lower extremity Category: Medical Qualifiers: Affected thrombotic vein of extremity: unspecified vein of extremity Chronicity: unspecified DVT location: lower extremity Laterality: right Qualified Code(s): I82.401 - Acute embolism and thrombosis of unspecified deep veins of right lower extremity Plan: Healthcare Maintenance: - Blood work to check cholesterol and diabetes screening - Reduction in alcohol intake advised - Recommendation to limit salt intake - Confirmation of up-to-date colonoscopy, with next screening not needed for several years Plan I discussed with the patient the importance of continuing his current hypertension and anticoagulation treatments. I emphasized the need to cut down on alcohol and salt consumption as part of his lifestyle adjustments to improve his blood pressure management. We talked about the importance of staying active to prevent venous thromboembolism and the potential risk of blood clots due to inactivity. I will follow up on his blood work results and provide any additional recommendations based on the findings. Orders: Orders Comprehensive Met. Panel Today I10 - Essential (primary) hypertension Hemoglobin A1c Today I10 - Essential (primary) hypertension Lipid Panel Today I10 - Essential (primary) hypertension TSH reflex Free T4 Today I10 - Essential (primary) hypertension Vitamin D 25-OH Total Today I10 - Essential (primary) hypertension Complete Blood Count Auto Diff Today I10 - Essential (primary) hypertension Medications: New potassium chloride ER 20 mEq PO DAILY 90 tabs 3RF 90 days diltiazem HCl CD 360 mg PO DAILY 90 caps 3RF 90 days apixaban (Eliquis) 5 mg PO BID 180 tabs 3RF 90 days Changed From losartan-hydrochlorothiazide 100-25 mg 1 tab PO DAILY To losartan-hydrochlorothiazide 100-25 mg 1 tab PO DAILY 90 tabs 3RF 90 days Patient Instructions: - Continue taking your current medications as prescribed. - Decrease salt in your diet and cut down on alcohol consumption. - Stay active, especially during long periods of travel. - Get your blood work done at the hospital as soon as possible. - Return for a follow-up in six months unless you hear otherwise from me regarding your lab results.
[2025-06-05 14:08] VITALS: BP 136/72; PULSE 91; RESP 17; TEMP 36.8; O2SAT 96; BMI 30.9
== END 2025-06-05 14:27 | disposition home or self-care (01) ==
PROVIDERS: PCP Student in an Organized Health Care Education/Training Program; Visit Provider Student in an Organized Health Care Education/Training Program
DX: I10 Essential (primary) hypertension (principal); I26.99 Other pulmonary embolism without acute cor pulmonale; I82.401 Acute embolism and thrombosis of unspecified deep veins of right lower extremity; D68.51 Activated protein C resistance; Z95.828 Presence of other vascular implants and grafts

== ENCOUNTER 2025-06-05 13:57 | Outpatient (REF) | payer MEDICARE, SELFPAY ==
[2025-06-05 14:36] LABS: MANUAL DIFF FLAG NO
[2025-06-05 15:36] LABS: Hematocrit 47.7 % (42.0-52.0); Hemoglobin 16.7 g/dl (14.0-18.0); Imm Gran Abs Auto 0.02 X10*3/uL (0.00-0.03); Imm Gran Pct Auto 0.3 % (0.0-0.4); Lymphocytes Absolute Auto 2.3 X10*3/uL (1.2-4.9); Mean Corpuscular HGB Conc 35.0 g/dl (31.0-36.0); Mean Corpuscular Hemoglobin 31.2 pg (27.0-33.0); Mean Corpuscular Volume 89.0 fL (80.0-98.0); NRBC Abs Auto 0.000 X10*3/uL (0.0-0.012); NRBC Pct Auto 0.0 /100WBC (0.0-0.2); Platelet Count 284 X10*3/uL (160-400); Red Blood Count 5.36 X10*6/uL (4.60-5.80); White Blood Count 6.4 X10*3/uL (4.8-10.8)
[2025-06-05 16:05] LABS: Alanine Aminotransferase 33 U/L (0-40); Albumin Level 4.4 g/dL (3.5-5.0); Alkaline Phosphatase 84 U/L (39-117); Anion Gap 11 (12-20); Aspartate Amino Transferase 37 U/L (5-37); Blood Urea Nitrogen 12 mg/dL (9-16); Calcium 9.4 mg/dL (8.4-10.2); Carbon Dioxide 29 mmol/L (22-29); Chloride 103 mmol/L (96-108); Cholesterol 195 mg/dL (<200); Estimated Glomerular Filt Rate 53; HDL Cholesterol 77 mg/dL (>40); Potassium 3.2 mmol/L (3.3-5.1); Sodium 140 mmol/L (135-145); Total Protein 7.6 g/dL (6.5-8.0); Triglycerides 84 mg/dL (<150)
== END 2025-06-05 13:58 | disposition home or self-care (01) ==
LOC: HO.LAB 13:57
PROVIDERS: PCP Student in an Organized Health Care Education/Training Program; Visit Provider Student in an Organized Health Care Education/Training Program
DX: I10 Essential (primary) hypertension (principal); D68.51 Activated protein C resistance; I82.401 Acute embolism and thrombosis of unspecified deep veins of right lower extremity; Z79.01 Long term (current) use of anticoagulants; Z79.899 Other long term (current) drug therapy; Z95.828 Presence of other vascular implants and grafts
CPT/HCPCS: 36415; 80053; 80061; 82306; 83036; 84443; 85025; 96127; 99202